=== PATIENT | female | born 1955 | race Caucasian/White ===

== ENCOUNTER → 2019-11-20 | Outpatient (CLI) | payer MEDICARE, OTHER ==
[2019-11-20 11:45] LABS: HCT 46.6 % (34.0-46.0); HGB 14.8 gm/dL (11.4-16.0); MCHC 31.7 g/dL (31.0-37.0); MCV 91.4 fL (80.0-100.0); Mean Platelet Volume 7.6; Platelet Count 259 k/uL (150-450); RDW 13.1 % (11.5-15.5); WBC 7.1 k/uL (3.8-10.6)
[2019-11-20 11:49] LABS: Appearance,Urine Clear (Clear); Bilirubin,Urine Negative (Negative); Blood,Urine Negative (Negative); Color,Urine Yellow; Glucose,Urine (UA) Negative (Negative); Hyaline Casts,Urine 8 /lpf (0-2); Ketones,Urine Trace (Negative); Leukocyte Esterase,Urine Large (Negative); Mucus,Urine Few /hpf; Nitrite,Urine Negative (Negative); PH, Urine 5.5 (5.0-8.0); Protein,Urine Trace (Negative); RBC,Urine 1 /hpf (0-5); Specific Gravity,Urine 1.025 (1.001-1.035); Squamous Epithelial Cell,Urine 4 /hpf (0-4); Urobilinogen,Urine <2.0 mg/dL (<2.0); WBC,Urine 6 /hpf (0-5)
[2019-11-20 11:56] LABS: Albumin 4.1 g/dL (3.5-5.0); Calcium 9.7 mg/dL (8.4-10.2); Potassium 4.7 mmol/L (3.5-5.1); Total Bilirubin 0.6 mg/dL (0.2-1.3); Total Protein 6.8 g/dL (6.3-8.2)
[2019-11-20 12:22] LABS: Partial Thromboplastin Time 24.1 sec (22.0-30.0)
== END | disposition home or self-care (01) ==
LOC: LABPAT 09:50
PROVIDERS: ATTEND Orthopaedic Surgery
DX: Z01.818 Encounter for other preprocedural examination (principal); Z01.812 Encounter for preprocedural laboratory examination
CPT/HCPCS: 36415; 80053; 81001; 85027; 85610; 85730; 87070

== ENCOUNTER 2019-12-03 10:57 | Day surgery (SDC) | payer BC, MEDICARE ==
[2019-11-27 14:19] VITALS: BMI 32.9
[~2019-12-03 10:57] MED LIST: ACETAMINOPHEN TAB 500 MG TAB PO ONE; DEXAMETHASONE SOD PHOSPHATE 10 MG/ML 1 ML VIAL IV ONE; GABAPENTIN 300 MG CAP PO ONE; HYDROmorphone 0.5 MG/0.5 ML SYRINGE IVP PRN; LIDOCAINE 1% (10MG/ML) FOR IV START INTRADERMA PRN; MELOXICAM 7.5 MG TAB PO ONE; MIDAZOLAM 2 MG/2 ML VIAL IV PRN; ONDANSETRON 4 MG/2 ML VIAL IVP ONE; TRANEXAMIC ACID 1,000 MG in SODIUM CHLORIDE 0.9% 100 ML IVPB ONE
[2019-12-03] MEDS ORDERED: ACETAMINOPHEN TAB 500 MG TAB ONE (11:47)
[2019-12-03] MEDS ORDERED: ONDANSETRON 4 MG/2 ML VIAL ONE (11:48)
[2019-12-03] MEDS: LACTATED RINGERS 1,000 ML IV SCH (11:56)
[2019-12-03] MEDS ORDERED: ONDANSETRON 4 MG/2 ML VIAL IVP PRN (12:22)
[2019-12-03] MEDS ORDERED: hydrOXYzine pamoate 25 MG CAP PO PRN (12:22)
[2019-12-03] MEDS ORDERED: MAGNESIUM HYDROXIDE 2,400 MG/10 ML CUP PO PRN (12:22)
[2019-12-03] MEDS ORDERED: HYDROmorphone 0.5 MG/0.5 ML SYRINGE IVP PRN ×3 (12:22)
[2019-12-03] MEDS ORDERED: diazePAM 5 MG TAB PO PRN (12:22)
[2019-12-03] MEDS ORDERED: HYDROcodone/APAP 5-325MG 1 EACH TAB PO PRN (12:22)
[2019-12-03] MEDS ORDERED: NALOXONE 0.4 MG/ML 1 ML VIAL IV PRN (12:22)
[2019-12-03] MEDS ORDERED: fentaNYL (PF) 50 MCG/ML 2 ML AMP ONE (12:48)
[2019-12-03] MEDS ORDERED: PROPOFOL 10 MG/ML 20 ML VIAL IV ONE (12:48)
[2019-12-03] MEDS ORDERED: SODIUM CHLORIDE 0.9% IRRIG 1,000 ML BTL IRRIGATION ONE (12:48)
[2019-12-03] MEDS ORDERED: MIDAZOLAM 2 MG/2 ML VIAL ONE (12:48)
[2019-12-03] MEDS ORDERED: TRANEXAMIC ACID 1,000 MG/10 ML VIAL ONE (12:48)
[2019-12-03] MEDS ORDERED: SODIUM CHLORIDE 0.9% 100 ML BAG ONE (12:48)
[2019-12-03] MEDS ORDERED: HEPARIN SODIUM,PORCINE 10,000 UNIT/ML 1 ML VIAL ONE (12:48)
[2019-12-03] MEDS ORDERED: ceFAZolin 3,000 MG in SODIUM CHLORIDE 0.9% IRRIGATIO 3,000 ML IRRIGATION ONE (12:52)
[2019-12-03] MEDS: ROPIVACAINE 246.25 MG, EPINEPHrine 0.5 MG, KETOROLAC 30 MG, cloNIDine HCL/PF 80 MCG, WA... MISCELLANE ONE ×10 (13:29→14:07)
[2019-12-03] MEDS ORDERED: LACTATED RINGERS 1,000 ML IV ONE (14:18)
--- NOTE | 2019-12-03 14:21 | P.OP ---
Date of Procedure: 12/03/19 Preoperative Diagnosis: Severe osteoarthritis right hip Postoperative Diagnosis: Severe osteoarthritis right hip Procedure(s) Performed: Right total hip arthroplasty with a direct anterior approach Implants: Ang and nephew Polarstem size 3 standard Ang & Nephew R3, 3 hole acetabular shell, 54 mm Ang & Nephew reflection 6.5 mm cancellus screw, 20 mm 2 Ang & Nephew R3, XLPE 20 acetabular liner Ang & Nephew Oxinium femoral head 36 m, +4 All components were press-fit. The articulation is Oxinium on polyethylene. Anesthesia: spinal Surgeon: Fred Oliveira Trainmaster #1: Liz Gaitan Estimated Blood Loss (ml): 300 (124 mL returned with Cell Saver) Pathology: other (Femoral head) Condition: stable Disposition: PACU Indications for Procedure: After failure of conservative treatment we discussed the surgical and nonsurgical treatment options at length. Patient wishes to proceed with a total hip arthroplasty with a direct anterior approach. Complications specific to this procedure were discussed at length, including but not limited to infection, leg length discrepancy, dislocation, and nerve injury. Covid-19 was also discussed at length with the patient, and they are aware of the current policies and procedures. The patient was given the option of delaying surgery, but they elect to proceed knowing these risks. Patient is aware of all these complications and informed consent was obtained Operative Findings: The operative findings are consistent with severe osteoarthritis of the right hip Description of Procedure: Patient was seen and evaluated in the preoperative area, consent was reviewed, and the surgical site was marked with a skin marker. Patient was then brought to the operating room and given prophylactic antibiotics intravenously. 1 g of Tranexamic acid was also given. A spinal anesthetic was administered by the anesthesia department. The patient was then placed on the Pes[place] table with the bony prominences well-padded. The hip area was then prepped and draped in usual sterile fashion. A universal timeout was then performed, which confirmed the patient's name, surgical site, ALLERGIES, and procedure being performed. Next the incision site was located at 1 cm distal and 1 cm lateral to the anterior superior iliac spine. The skin and subcutaneous tissues were sharply incised. Incision was carefully dissected down to the fascia overlying the tensor fascia sue muscle. This fascia was then incised in line with the incision. Next, using blunt finger dissection, the tensor fascia sue muscle was dissected off its investing fascia. The muscle was then carefully retracted laterally with a cobra retractor over the lateral neck of the femur. Next, the circumflex vessels were identified and cauterized using the AquaMantis device. The anterior hip capsule was then exposed. The capsule was then opened and an inverted T fashion. Cobra retractors were then placed intracapsularly. The proximal femur was then visualized. The femoral neck was then osteotomized appropriate level above the lesser trochanter. Small amount of traction was placed with the Pes[place]um table. A small wedge of bone was then removed from the remaining femoral head. Next, using a corkscrew femoral head was easily removed from the acetabulum. On gross visual inspection, the femoral head had complete loss of articular cartilage in multiple periarticular osteophytes. Attention was then turned to the acetabulum. the acetabulum was exposed and any remaining labrum was excised. Sequential reaming of the acetabulum was performed using fluoroscopic guidance. When the appropriate size was reached, a trial was then placed. The position and fit of the trial was checked with fluoroscopy. The trial was then removed. Then, using fluoroscopic guidance, the final implant was impacted at 20 of anteversion and 40 of abduction, and fully seated in the acetabulum. 2 screws were then placed in the acetabulum. Again fluoroscopy was used to check position of the screws. Next, the liner was then impacted, with a 20 elevated liner located in the anterior superior quadrant. Component locking was confirmed. Attention was then directed to the femur. With the aid of the Pesotum table, the femur was externally rotated to approximately 130, extended, and abducted under the opposite leg. A side hook was then placed under the proximal femur, and the side hook elevator was used to elevate the proximal femur. Retractors were then placed. A capsular release was performed, as well as a release of the conjoined tendon, which afforded excellent visualization of the proximal femur. Next, a box osteotome was used to lateralize the proximal femur. A hose handler was then used to locate the femoral canal. Sequential broaching was then performed with appropriate size which afforded excellent fixation in the proximal femur. A trial was then placed with appropriate head and neck, and the hip was gently reduced with the aid of the Pesotum table. Fluoroscopy was then used to check position of the components, as well as to ensure equal leg lengths. The hip was then gently dislocated and the trials were then removed. Final implants were then impacted and the hip was again reduced. Final fluoroscopic x-rays confirmed that the components were in anatomic position, as well as equal leg lengths. The hip was also taken through range of motion, and found to be stable. The hip was then copiously irrigated with antibiotic solution with pulsatile lavage. The hip was then irrigated with Irrisept solution. The soft tissues were then injected with a ropivacaine solution, which consisted of 246.25 mg of ropivacaine, 0.5 mg of epinephrine, 30 mg of Toradol, 80 g of clonidine, and 48.45 mL of sterile water, for a total of 100 mL of fluid injected. A second dose of 1 g of Tranexamic acid was also given. the fascia was then closed with 2-0 strata fix suture. The subcutaneous tissue was closed with 3-0 Vicryl. The subcuticular tissue was closed with 3-0 strata fix suture. The skin was then closed with Dermabond glue and a sterile silver dressing. The patient was then transferred to the recovery room in stable condition. The pediatric physical therapy assistant AYE Haines was required due to the complexity of surgery, and the need for skilled surgical physician assistant for positioning, draping, exposure, retraction, and closure of the wound.
--- NOTE | 2019-12-03 14:30 | FL ---
EXAMINATION TYPE: FL guidance operating room, XR Hip Limited RT DATE OF EXAM: 12/03/2019 CLINICAL HISTORY: Right hip pain and osteoarthritis. TECHNIQUE: Fluoroscopy. Intraoperative limited views right hip. COMPARISON: None. FINDINGS: Fluoroscopic guidance was provided during right hip replacement procedure performed by Dr. Oliveira. A total of 63 seconds of fluoroscopic time was utilized during the procedure and 3 spot f luoroscopic intraoperative images are acquired. Intraoperative images obtained show metallic artifact from total right hip arthroplasty satisfactory in position on frontal view with surrounding lucency or gas from recent surgical replacement noted. IMPRESSION: As Above.
--- NOTE | 2019-12-03 15:08 | XR ---
EXAMINATION TYPE: XR Hip Limited RT DATE OF EXAM: 12/03/2019 CLINICAL HISTORY: Right hip pain and osteoarthritis. TECHNIQUE: Single AP portable view of right hip is obtained immediately postoperatively. COMPARISON: None. FINDINGS: Metallic hardware from right hip arthroplasty is seen and appears satisfactory in alignment and position. There is evidence of recent surgery with subcutaneous gas noted surrounding prosthesi s. IMPRESSION: Metallic hardware from right hip arthroplasty is satisfactory in position.
[2019-12-03] MEDS: HYDROcodone/APAP 5-325MG 1 EACH TAB PO PRN ×2 (15:47→21:42)
[2019-12-03] MEDS: SODIUM CHLORIDE 0.9% 1,000 ML IV SCH (15:56)
[2019-12-03] MEDS: ASPIRIN 325 MG TAB PO SCH (20:37)
[2019-12-03] MEDS ORDERED: SENNOSIDES-DOCUSATE SODIUM 1 EACH TAB PO SCH (21:00)
[2019-12-03] MEDS ORDERED: ALBUTEROL NEBULIZED 2.5 MG/3 ML INHALATION PRN (21:00)
[2019-12-03] MEDS ORDERED: LORATADINE-PSEUDOEPH 5-120 MG 1 EACH TAB.ER.12H PO PRN (21:00)
[2019-12-03] MEDS: GABAPENTIN 300 MG CAP PO SCH (21:38)
[2019-12-03] MEDS ORDERED: ACETAMINOPHEN TAB 325 MG TAB PO PRN (22:00)
[2019-12-03] MEDS ORDERED: FLUTICASONE 50MCG/SPRAY NASAL 16GM EA NOSTRIL PRN (22:00)
[2019-12-03] MEDS ORDERED: LEFLUNOMIDE 20 MG TAB PO SCH (22:00)
[2019-12-04] MEDS: SODIUM CHLORIDE 0.9% 1,000 ML IV SCH ×2 (03:59→08:05)
[2019-12-04] MEDS: LACTATED RINGERS 1,000 ML IV SCH (04:47)
[2019-12-04 07:28] LABS: Basophils % (A) 0 %; Eosinophils % (A) 0 %; HCT 36.1 % (34.0-46.0); Lymphocytes # (A) 0.9 k/uL (1.0-4.8); Lymphocytes % (A) 10 %; MCH 29.4 pg (25.0-35.0); MCHC 32.4 g/dL (31.0-37.0); MCV 90.7 fL (80.0-100.0); Mean Platelet Volume 7.7; Monocytes # (A) 0.7 k/uL (0-1.0); Monocytes % (A) 7 %; Neutrophils % (A) 82 %; Platelet Count 210 k/uL (150-450); RBC 3.97 m/uL (3.80-5.40); RDW 13.2 % (11.5-15.5); WBC 9.8 k/uL (3.8-10.6)
[2019-12-04 07:39] LABS: HGB 11.7 gm/dL (11.4-16.0)
[2019-12-04] MEDS: GABAPENTIN 300 MG CAP PO SCH (08:04)
[2019-12-04] MEDS: ASPIRIN 325 MG TAB PO SCH (08:04)
[2019-12-04 08:13] VITALS: BP 136/71; PULSE 83; RESP 18; TEMP 98.1
[2019-12-04] MEDS ORDERED: Acetaminophen-Codeine 300-30mg TAB PO PRN ×2 (08:57)
[2019-12-04] MEDS ORDERED: SERTRALINE 100 MG TAB PO SCH (09:00)
[2019-12-04] MEDS ORDERED: MELOXICAM 7.5 MG TAB PO SCH (09:00)
--- NOTE | 2019-12-04 09:01 | P.DS ---
Providers Expected date of discharge: 12/04/19 Attending physician: Fred Oliveira Consults: 12/03/19 12:22 Consult Physician Routine Consulting Provider: Ed Philippe Consult Reason/Comments: medical management Do you want consulting provider notified?: Yes Primary care physician: Wendy Dawson - Discharge Diagnosis(es) (1) S/P total hip arthroplasty Current Visit: Yes Status: Acute (2) Osteoarthritis of right hip Current Visit: Yes Status: Acute Hospital Course: This is a 64-year-old female with known history of degenerative arthritis of the right hip. The patient presents for evaluation. After discussion and consideration patient elects to proceed with total hip arthroplasty. The patient is seen preoperatively by Dr. Oliveira and medically cleared for surgery by their primary care physician. Patient is admitted to [facility] on 12/03/2019 for total hip arthroplasty. The procedures performed without complication or sequelae. The patient is doing well postoperatively. Labs and vital signs are stable on day of discharge. On day of discharge patient's hip incision is healing well. There is minimal erythema. There is no drainage noted at this time. There is minimal soft tissue swelling to the hip and thigh. Patient has full foot and ankle motion without difficulty or pain. Calf is soft and nontender to palpation. Neurovascular status to the right lower extremity is intact. Patient is discharged home in good condition. Opioid start talking form is reviewed and signed at patient bedside. Please see med rec for accurate list of home medications. Plan - Discharge Summary Discharge Rx Participant: No New Discharge Prescriptions: New Aspirin 325 mg PO BID #60 tab Sennosides [Senokot] 2 tab PO DAILY PRN #60 tablet PRN Reason: Constipation Acetaminophen-Codeine 300-30mg [Tylenol #3] 1 - 2 tab PO Q6H PRN #56 tablet PRN Reason: Pain No Action Loratadine-Pseudoeph 5-120 mg [Claritin-D 12 Hour] 1 tab PO Q12HR PRN PRN Reason: allergies Fluticasone Nasal [place] [Flonase Nasal [place]] 1 spray EA NOSTRIL DAILY PRN PRN Reason: allergies Albuterol Inhaler [Ventolin Hfa Inhaler] 1 puff INHALATION DAILY PRN PRN Reason: Dyspnea Meloxicam [Mobic] 7.5 mg PO BID Leflunomide [Arava] 20 mg PO Q48H Sertraline HCl [Zoloft] 100 mg PO DAILY Gabapentin [Neurontin] 600 mg PO TID Acetaminophen [Tylenol] 325 mg PO DAILY PRN PRN Reason: Pain Esomeprazole Magnesium [NexIUM] 20 mg PO DAILY PRN PRN Reason: acid reflux Discharge Medication List Acetaminophen [Tylenol] 325 mg PO DAILY PRN 11/27/19 [History] Albuterol Inhaler [Ventolin Hfa Inhaler] 1 puff INHALATION DAILY PRN 11/27/19 [History] Esomeprazole Magnesium [NexIUM] 20 mg PO DAILY PRN 11/27/19 [History] Fluticasone Nasal [place] [Flonase Nasal [place]] 1 spray EA NOSTRIL DAILY PRN 11/27/19 [History] Gabapentin [Neurontin] 600 mg PO TID 11/27/19 [History] Leflunomide [Arava] 20 mg PO Q48H 11/27/19 [History] Loratadine-Pseudoeph 5-120 mg [Claritin-D 12 Hour] 1 tab PO Q12HR PRN 11/27/19 [History] Meloxicam [Mobic] 7.5 mg PO BID 11/27/19 [History] Sertraline HCl [Zoloft] 100 mg PO DAILY 11/27/19 [History] Acetaminophen-Codeine 300-30mg [Tylenol #3] 1 - 2 tab PO Q6H PRN #56 tablet 12/04/19 [Rx] Aspirin 325 mg PO BID #60 tab 12/04/19 [Rx] Sennosides [Senokot] 2 tab PO DAILY PRN #60 tablet 12/04/19 [Rx] Follow up Appointment(s)/Referral(s): Fred Oliveira DO [Doctor of Osteopathic Medicine] - 2 Weeks Activity/Diet/Wound Care/Special Instructions: Weightbearing as tolerated with walker. Leave dressing intact. Dressing may be removed by home care nurse or by patient in 10 days. May shower with dressing on. Recommend use of compression stockings daily until follow up to help prevent swelling and blood clots. May remove at night before sleeping. Please follow-up with [facility] in 2 weeks and call with any questions or concerns, . Discharge Disposition: HOME WITH HOME HEALTH SERVICES
--- NOTE | 2019-12-04 12:12 | P.CONS ---
History of Present Illness - History of Present Illness This is a pleasant 64 years old female with past medical history of osteoarth ritis, rheumatoid arthritis, GERD, fibromyalgia. She was admitted for severe osteoarthritis of right hip, status post elective right total hip arthroplasty. Today postop day #1 Medical consult was requested for medical management. Patient denies any specific symptoms, she was pleasant and smiling. She denies chest pain or dyspnea, no abdominal pain, no nausea, vomiting, showed bowel movement. She denies fever. vitals reviewed Review of Systems CONSTITUTIONAL: No fever, no malaise, no fatigue. HEENT: No recent visual problems or hearing problems. Denied any sore throat. CARDIOVASCULAR: No orthopnea, PND, no palpitations, no syncope. PULMONARY: No shortness of breath, no cough, no hemoptysis. GASTROINTESTINAL: No diarrhea, no nausea, no vomiting, no abdominal pain. Normoactive bowel sounds. NEUROLOGICAL: No headaches, no weakness, no numbness. HEMATOLOGICAL: Denies any bleeding or petechiae. GENITOURINARY: Denies any burning micturition, frequency, or urgency. MUSCULOSKELETAL/RHEUMATOLOGICAL: Denies any joint pain, swelling, or any muscle pain. Past Medical History Past Medical History: Fibromyalgia, GERD/Reflux, Osteoarthritis (OA), Rheumatoid Arthritis (RA), Sleep Apnea/CPAP/BIPAP Additional Past Medical History / Comment(s): seasonal allergies, has cpap,lymphdema rt arm History of Any Multi-Drug Resistant Organisms: None Reported Past Surgical History: Cholecystectomy, Hysterectomy, Joint Replacement, Orthopedic Surgery, Tonsillectomy Additional Past Surgical History / Comment(s): 2 large lipomas removed rt axillae, 3 total knee lt x1,rt knee x2 replacement,lipoma removed from back,ermias carpal tunnel,tendon release middle finger and thumbs ermias., ermias thumb joints Past Anesthesia/Blood Transfusion Reactions: No Reported Reaction Past Psychological History: Depression Smoking Status: Former smoker Past Alcohol Use History: Rare Additional Past Alcohol Use History / Comment(s): smoked 10 years off and on 1 ppd, quit age 26 Past Drug Use History: None Reported - Past Family History Sister(s) Family Medical History: Cancer Additional Family Medical History / Comment(s): skin cancer Brother(s) Family Medical History: Cancer Additional Family Medical History / Comment(s): skin cancer Medications and Allergies Home Medications Medication Instructions Recorded Confirmed Type Acetaminophen [Tylenol] 325 mg PO DAILY PRN 11/27/19 12/03/19 History Albuterol Inhaler [Ventolin Hfa 1 puff INHALATION DAILY PRN 11/27/19 12/03/19 History Inhaler] Esomeprazole Magnesium [NexIUM] 20 mg PO DAILY PRN 11/27/19 12/03/19 History Fluticasone Nasal [place] [Flonase 1 spray EA NOSTRIL DAILY PRN 11/27/19 12/03/19 History Nasal [place]] Gabapentin [Neurontin] 600 mg PO TID 11/27/19 12/03/19 History Leflunomide [Arava] 20 mg PO Q48H 11/27/19 12/03/19 History Loratadine-Pseudoeph 5-120 mg 1 tab PO Q12HR PRN 11/27/19 12/03/19 History [Claritin-D 12 Hour] Meloxicam [Mobic] 7.5 mg PO BID 11/27/19 12/03/19 History Sertraline HCl [Zoloft] 100 mg PO DAILY 11/27/19 12/03/19 History Acetaminophen-Codeine 300-30mg 1 - 2 tab PO Q6H PRN #56 tablet 12/04/19 Rx [Tylenol #3] Aspirin 325 mg PO BID #60 tab 12/04/19 Rx Sennosides [Senokot] 2 tab PO DAILY PRN #60 tablet 12/04/19 Rx Allergies Allergy/AdvReac Type Severity Reaction Status Date / Time amoxicillin [From Augmentin] Allergy Nausea Verified 12/03/19 11:38 aripiprazole [From Abilify] Allergy Unknown Verified 12/03/19 11:38 clavulanic acid Allergy Nausea Verified 12/03/19 11:38 [From Augmentin] methotrexate Allergy ringing in Verified 12/03/19 11:38 ears Sulfa (Sulfonamide Allergy Rash/Hives, Verified 12/03/19 11:38 Antibiotics) itchy Physical Exam Vitals: Vital Signs Temp Pulse Pulse Resp BP BP Pulse Ox 12/04/19 08:00 83 18 12/04/19 07:00 98.1 F 83 18 136/71 96 12/04/19 03:02 14 12/04/19 01:23 97.5 F L 71 20 113/67 92 L 12/03/19 23:29 16 12/03/19 19:30 97.6 F 92 20 145/54 93 L 12/03/19 17:08 77 120/74 12/03/19 16:54 83 154/69 12/03/19 16:38 75 122/77 12/03/19 16:23 77 135/83 12/03/19 16:08 83 135/72 12/03/19 16:00 78 16 12/03/19 15:53 78 123/81 12/03/19 15:39 80 141/70 12/03/19 15:38 97.6 F 76 14 136/78 94 L 12/03/19 15:17 78 16 152/72 97 12/03/19 15:00 80 16 157/75 98 12/03/19 14:47 87 16 165/78 92 L 12/03/19 14:35 97.7 F 84 16 144/80 95 Intake and Output 12/03/19 12/04/19 12/04/19 22:59 06:59 14:59 Intake Total 710 560 Balance 710 560 Intake: IV 150 Intake, IV Titration 560 560 Amount Lactated Ringers 1,000 ml 560 @ 20 mls/hr IV .Q24H [facility] Rx#:[id number] Sodium Chloride 0.9% 1, 560 000 ml @ 70 mls/hr IV . [id number] [facility]ORTES Rx#:[id number] Other: Voiding Method Toilet Toilet # Voids 2 1 Weight 107.5 kg GENERAL: The patient is alert and oriented x3, not in any acute distress. Well developed, well nourished. HEENT: Pupils are round and equally reacting to light. EOMI. No scleral icterus. No conjunctival pallor. Normocephalic, atraumatic. No pharyngeal erythema. No thyromegaly. CARDIOVASCULAR: S1 and S2 present. No murmurs, rubs, or gallops. PULMONARY: Chest is clear to auscultation, no wheezing or crackles. ABDOMEN: Soft, nontender, nondistended, normoactive bowel sounds. No palpable organomegaly. MUSCULOSKELETAL: No joint swelling or deformity. EXTREMITIES: No cyanosis, clubbing, or pedal edema. NEUROLOGICAL: Gross neurological examination did not reveal any focal deficits. SKIN: No rashes. No petechiae Results CBC & Chem 7: 12/04/19 06:31 Labs: Abnormal Lab Results - Last 24 Hours (Table) 12/04/19 Range/Units 06:31 Neutrophils # 8.0 H (1.3-7.7) k/uL Lymphocytes # 0.9 L (1.0-4.8) k/uL Assessment and Plan Assessment: Severe osteoarthritis of right hip status post right total hip arthroplasty Rheumatoid arthritis GERD Fibroma lodging Osteoarthritis Plan: This is a pleasant 64 years old female who presents with total right hip arthroplasty. Labs and medication were reviewed.. Continue same treatment. Continue with sy mptomatic treatment. Resume home medication. Monitor lytes and vitals. DVT and GI prophylaxis. Further recommendations of the clinical course of the patient DVT prophylaxis and pain management as per surgery primary team. We Recommend patient follow up with her PCP within one week after discharge and patient was instructed with the same Thank you for consulting us
== END 2019-12-04 13:02 | disposition home health service (06) ==
LOC: OR 10:57 → 4SSUR 14:53 → OR 12-04 13:02
PROVIDERS: ATTEND Orthopaedic Surgery
DX: M16.11 Unilateral primary osteoarthritis, right hip (principal); M06.9 Rheumatoid arthritis, unspecified; G47.33 Obstructive sleep apnea (adult) (pediatric); E66.9 Obesity, unspecified; I89.0 Lymphedema, not elsewhere classified; M79.7 Fibromyalgia; K21.9 Gastro-esophageal reflux disease without esophagitis; K22.8 Other specified diseases of esophagus; F32.9 Major depressive disorder, single episode, unspecified; J30.2 Other seasonal allergic rhinitis; Z88.2 Allergy status to sulfonamides; Z88.0 Allergy status to penicillin; Z88.8 Allergy status to other drugs, medicaments and biological substances; Z79.1 Long term (current) use of non-steroidal anti-inflammatories (NSAID); Z79.891 Long term (current) use of opiate analgesic; Z79.899 Other long term (current) drug therapy; Z96.653 Presence of artificial knee joint, bilateral; Z99.89 Dependence on other enabling machines and devices; Z90.49 Acquired absence of other specified parts of digestive tract; Z90.710 Acquired absence of both cervix and uterus; Z90.89 Acquired absence of other organs; Z87.891 Personal history of nicotine dependence; Z80.8 Family history of malignant neoplasm of other organs or systems; Z97.3 Presence of spectacles and contact lenses; Z83.3 Family history of diabetes mellitus; Z68.33 Body mass index [BMI] 33.0-33.9, adult
CPT/HCPCS: 27130; 97161; 97165; 86891; 85025; 88300; 73501 ×2; C1776; J2250; J0171; J1644; J1100; J0690 ×3; J2405; J3010; J1885; J2795; J2704; J0735; 86850; 86900; 86901

== ENCOUNTER 2021-11-16 19:36 | Inpatient (IN) | payer MEDICARE, OTHER ==
[2021-11-16] MEDS ORDERED: HYDROmorphone 1 MG/ML 1 ML SYRINGE IVP STA (20:18)
[2021-11-16] MEDS ORDERED: NALOXONE 0.4 MG/ML 1 ML VIAL IV PRN (20:19)
[2021-11-16] MEDS ORDERED: ONDANSETRON 4 MG/2 ML VIAL IVP PRN (20:19)
--- NOTE | 2021-11-16 20:19 | ED ---
General Adult HPI - General Chief complaint: Fall Stated complaint: Fall, hip injury Time Seen by Provider: 11/16/21 19:50 Source: patient Mode of arrival: EMS Limitations: physical limitation - History of Present Illness Initial comments: 66-year-old female with past medical history of right hip replacement in 2019 presents emergency room from [facility] in [facility]. Earlier today the patient was standing in her kitchen when she went to turn left and subsequently felt severe pain in her right hip causing her fall to the floor. At outside hospital patient went sedation and reduction 2 by the ER physician and on-call orthopedist. They were unable to reduce the patient's right hip and therefore contacted Dr. Muñiz who did originally procedure. Patient was agreeable to transfer to our facility for possible open reduction. She arrives and continues to have pain. Last received morphine 2 mg around 5:30. No numbness or tingling in the foot. No other injuries. No other alleviating, precipitating or modifying factors - Related Data Home Medications Medication Instructions Recorded Confirmed Albuterol Inhaler [Ventolin Hfa 2 puff INHALATION RT-Q6H PRN 11/27/19 11/16/21 Inhaler] Fluticasone Nasal [place] [Flonase 1 spray EA NOSTRIL DAILY PRN 11/27/19 11/16/21 Nasal [place]] Leflunomide [Arava] 20 mg PO Q48H 11/27/19 11/16/21 Sertraline HCl [Zoloft] 100 mg PO DAILY 11/27/19 11/16/21 Cholecalciferol [Vitamin D3 (25 25 mcg PO TID 11/16/21 11/16/21 Mcg = 1000 Iu)] Esomeprazole Magnesium [NexIUM 20 mg PO DAILY 11/16/21 11/16/21 24Hr] Pregabalin [Lyrica] 150 mg PO TID 11/16/21 11/16/21 Previous Rx's Medication Instructions Recorded Aspirin 325 mg PO BID #60 tab 11/17/21 HYDROcodone/APAP 5-325MG [[place] 5] 1 each PO Q6HR PRN #28 tab 11/17/21 Ondansetron [Zofran] 4 mg PO Q6HR PRN #30 tab 11/17/21 Sennosides-Docusate Sodium 1 tab PO BID PRN #60 tablet 11/17/21 [Senokot-S] Allergies Allergy/AdvReac Type Severity Reaction Status Date / Time amoxicillin [From Augmentin] Allergy Nausea Verified 11/17/21 17:27 aripiprazole [From Abilify] Allergy Unknown Verified 11/17/21 17:27 clavulanic acid Allergy Nausea Verified 11/17/21 17:27 [From Augmentin] levofloxacin [From Levaquin] Allergy Unknown Verified 11/17/21 17:27 methotrexate Allergy ringing in Verified 11/17/21 17:27 ears Sulfa (Sulfonamide Allergy Rash/Hives, Verified 11/17/21 17:27 Antibiotics) itchy Review of Systems ROS Statement: Those systems with pertinent positive or pertinent negative responses have been documented in the HPI. ROS Other: All systems not noted in ROS Statement are negative. Past Medical History Past Medical History: Fibromyalgia, GERD/Reflux, Osteoarthritis (OA), Rheumatoid Arthritis (RA), Sleep Apnea/CPAP/BIPAP Additional Past Medical History / Comment(s): seasonal allergies, has cpap,lymphdema rt arm History of Any Multi-Drug Resistant Organisms: None Reported Past Surgical History: Cholecystectomy, Hysterectomy, Joint Replacement, Orthopedic Surgery, Tonsillectomy Additional Past Surgical History / Comment(s): 2 large lipomas removed rt a xillae, 3 total knee lt x1,rt knee x2 replacement,lipoma removed from back,ermias carpal tunnel,tendon release middle finger and thumbs ermias., ermias thumb joints Past Anesthesia/Blood Transfusion Reactions: No Reported Reaction Past Psychological History: Depression Smoking Status: Former smoker Past Alcohol Use History: Rare Past Drug Use History: None Reported - Past Family History Sister(s) Family Medical History: Cancer Additional Family Medical History / Comment(s): skin cancer Brother(s) Family Medical History: Cancer Additional Family Medical History / Comment(s): skin cancer Father Family Medical History: Myocardial Infarction ([place]) Additional Family Medical History / Comment(s): Father of a [place] at the age of 65yrs. Mother Family Medical History: No Reported History Additional Family Medical History / Comment(s): Mother was healthy and lived to be 96yrs old. General Exam Limitations: physical limitation General appearance: alert, in no apparent distress Head exam: Present: atraumatic, normocephalic, normal inspection Eye exam: Present: normal appearance, PERRL, EOMI. Absent: scleral icterus, conjunctival injection, periorbital swelling ENT exam: Present: normal exam, mucous membranes moist Neck exam: Present: normal inspection. Absent: tenderness, meningismus, lymphadenopathy Respiratory exam: Present: normal lung sounds bilaterally. Absent: respiratory distress, wheezes, rales, rhonchi, stridor Cardiovascular Exam: Present: regular rate, normal rhythm, normal heart sounds. Absent: systolic murmur, diastolic murmur, rubs, gallop, clicks GI/Abdominal exam: Present: soft, normal bowel sounds. Absent: distended, tenderness, guarding, rebound, rigid Extremities exam: Present: tenderness (right hip. right leg is shortened and rotated). Absent: pedal edema, joint swelling, calf tenderness Back exam: Present: normal inspection Neurological exam: Present: alert, oriented X3, CN II-XII intact Psychiatric exam: Present: normal affect, normal mood Skin exam: Present: warm, dry, intact, normal color. Absent: rash Course Vital Signs 11/16/21 11/16/21 11/16/21 19:41 19:42 19:50 Temperature 98.7 F Pulse Rate 79 84 Pulse Rate [ Bilateral Supine Dorsalis Pedis] Respiratory 16 64 H Rate Blood Pressure 171/94 171/94 Blood Pressure [Left Arm] O2 Sat by Pulse 98 87 L 99 Oximetry 11/16/21 11/16/21 11/16/21 19:57 20:00 20:10 Temperature Pulse Rate 84 92 Pulse Rate [ 77 Bilateral Supine Dorsalis Pedis] Respiratory 15 17 Rate Blood Pressure 171/94 176/136 Blood Pressure [Left Arm] O2 Sat by Pulse 93 L Oximetry 11/16/21 11/16/21 11/16/21 20:20 20:30 20:33 Temperature Pulse Rate 91 96 82 Pulse Rate [ Bilateral Supine Dorsalis Pedis] Respiratory 14 23 16 Rate Blood Pressure 176/136 176/136 176/136 Blood Pressure [Left Arm] O2 Sat by Pulse 94 L 92 L 95 Oximetry 11/16/21 11/16/21 11/16/21 20:40 20:50 21:00 Temperature Pulse Rate 87 90 89 Pulse Rate [ Bilateral Supine Dorsalis Pedis] Respiratory 15 15 14 Rate Blood Pressure 176/136 176/136 176/136 Blood Pressure [Left Arm] O2 Sat by Pulse 87 L 87 L 94 L Oximetry 11/16/21 11/16/21 11/16/21 21:10 21:20 21:30 Temperature Pulse Rate 90 93 95 Pulse Rate [ Bilateral Supine Dorsalis Pedis] Respiratory 16 16 15 Rate Blood Pressure 176/79 176/79 176/79 Blood Pressure [Left Arm] O2 Sat by Pulse 96 97 96 Oximetry 11/16/21 11/16/21 11/16/21 21:40 21:50 22:00 Temperature Pulse Rate 97 96 96 Pulse Rate [ Bilateral Supine Dorsalis Pedis] Respiratory 12 16 16 Rate Blood Pressure 176/79 176/79 176/79 Blood Pressure [Left Arm] O2 Sat by Pulse 95 94 L 94 L Oximetry 11/16/21 11/16/21 11/16/21 22:10 22:20 22:30 Temperature Pulse Rate 99 101 H 100 Pulse Rate [ Bilateral Supine Dorsalis Pedis] Respiratory 16 12 12 Rate Blood Pressure 153/80 153/80 153/80 Blood Pressure [Left Arm] O2 Sat by Pulse 93 L 92 L 92 L Oximetry 11/16/21 11/16/21 11/16/21 22:40 22:50 23:10 Temperature Pulse Rate 98 99 88 Pulse Rate [ Bilateral Supine Dorsalis Pedis] Respiratory 13 18 15 Rate Blood Pressure 153/80 153/80 134/62 Blood Pressure [Left Arm] O2 Sat by Pulse 92 L 93 L 94 L Oximetry 11/16/21 11/16/21 11/16/21 23:20 23:30 23:40 Temperature Pulse Rate 89 92 92 Pulse Rate [ Bilateral Supine Dorsalis Pedis] Respiratory 14 15 16 Rate Blood Pressure 134/62 134/62 134/62 Blood Pressure [Left Arm] O2 Sat by Pulse 94 L 93 L 93 L Oximetry 11/16/21 11/17/21 11/17/21 23:50 02:21 06:41 Temperature Pulse Rate 92 89 77 Pulse Rate [ Bilateral Supine Dorsalis Pedis] Respiratory 10 L 16 18 Rate Blood Pressure 134/62 133/66 129/62 Blood Pressure [Left Arm] O2 Sat by Pulse 94 L 93 L 94 L Oximetry 11/17/21 11/17/21 09:00 14:37 Temperature 97.8 F Pulse Rate 87 Pulse Rate [ 76 Bilateral Supine Dorsalis Pedis] Respiratory 16 18 Rate Blood Pressure 148/64 Blood Pressure 132/77 [Left Arm] O2 Sat by Pulse 99 93 L Oximetry Medical Decision Making - Medical Decision Making Upon arrival patient was placed into room 4. Thorough history and physical exam was performed. I did review the patient's transfer record. 2 failed attempts at hip dislocation reduction and therefore the patient will be admitted for orthopedic evaluation. Called and spoke with Dr. Oliveira who agreed with the patient. Patient awaiting a bed on the floor in stable condition - Lab Data Result diagrams: 11/18/21 07:45 11/19/21 07:05 Lab Results 11/17/21 11/17/21 Range/Units 05:31 05:31 WBC 9.53 (4.50-10.00) X 10*3/uL RBC 4.42 (4.10-5.20) X 10*6/uL Hgb 12.4 (12.0-15.0) g/dL Hct 39.9 (37.2-46.3) % MCV 90.3 (80.0-97.0) fL MCH 28.1 (27.0-32.0) pg MCHC 31.1 L (32.0-37.0) g/dL RDW 14.5 (11.5-14.5) % Plt Count 193 (140-440) X 10*3/uL MPV 11.5 (9.5-12.2) fL Immature Gran % (Auto) 0.3 % Absolute Nucleated RBC 0 (0.00-0.00) X 10*3/uL Neutrophils % 74.1 % Lymphocytes % 14.7 % Monocytes % 8.9 % Eosinophils % 1.4 % Basophils % 0.6 % Immature Gran # 0.03 (0.00-0.04) X 10*3/uL Neutrophils # 7.06 (1.80-7.70) X 10*3/uL Lymphocytes # 1.40 (0.90-5.00) X 10*3/uL Monocytes # 0.85 (0.20-1.00) X 10*3/uL Eosinophils # 0.13 (0.04-0.35) X 10*3/uL Basophils # 0.06 (0.00-0.10) X 10*3/uL NRBC/100 WBC Diff 0 (0.0-0.0) /100 WBCS Sodium 143 (135-145) mmol/L Potassium 4.3 (3.5-5.5) mmol/L Chloride 107 (96-109) mmol/L Carbon Dioxide 27.8 H (20.0-27.5) mmol/L Anion Gap 8.20 L (10.00-18.00) mmol/L BUN 16.8 (9.0-27.0) mg/dL Creatinine 0.7 (0.6-1.5) mg/dL Est GFR (CKD-EPI)AfAm 103.2 (60.0-200.0) Est GFR (CKD-EPI)NonAf 89.0 (60.0-200.0) BUN/Creatinine Ratio 24.00 H (12.00-20.00) Ratio Glucose 144 H (70-110) mg/dL Calcium 8.8 (8.7-10.3) mg/dL Disposition Clinical Impression: Hip dislocation, right Disposition: ADMITTED IP TO THIS [facility] Condition: Stable Is patient prescribed a controlled substance at d/c from ED?: No Time of Disposition: 20:18 Decision to Admit Reason: Admit from EC Decision Date: 11/16/21 Decision Time: 20:19
[2021-11-16] MEDS ORDERED: MORPHINE SULFATE 2 MG/ML SYRINGE IVP ONE (20:22)
[2021-11-17] MEDS: MORPHINE SULFATE 4 MG/ML SYRINGE IV PRN ×2 (07:55→16:10)
[2021-11-17] MEDS: CHOLECALCIFEROL 25 MCG (1000 IU) TABLET PO SCH ×3 (07:56→21:57)
[2021-11-17] MEDS: PREGABALIN 75 MG CAP PO SCH ×4 (07:56→21:57)
[2021-11-17] MEDS: PANTOPRAZOLE 40 MG TABLET PO SCH (07:56)
[2021-11-17] MEDS: SERTRALINE 100 MG TAB PO SCH (08:55)
[2021-11-17] MEDS ORDERED: FLUTICASONE 50MCG/SPRAY NASAL 16GM EA NOSTRIL PRN (09:00)
[2021-11-17 09:15] LABS: Basophils # (A) 0.06 X 10*3/uL (0.00-0.10); Basophils % (A) 0.6 %; Eosinophils # (A) 0.13 X 10*3/uL (0.04-0.35); Eosinophils % (A) 1.4 %; HCT 39.9 % (37.2-46.3); HGB 12.4 g/dL (12.0-15.0); Immature Grans, Automated 0.3 %; Lymphocytes % (A) 14.7 %; MCH 28.1 pg (27.0-32.0); MCHC 31.1 g/dL (32.0-37.0); MCV 90.3 fL (80.0-97.0); Mean Platelet Volume 11.5 fL (9.5-12.2); Monocytes # (A) 0.85 X 10*3/uL (0.20-1.00); Monocytes % (A) 8.9 %; NRBC Per 100 WBC 0 /100 WBCS (0.0-0.0); Neutrophils # (A) 7.06 X 10*3/uL (1.80-7.70); Neutrophils % (A) 74.1 %; Platelet Count 193 X 10*3/uL (140-440); RBC 4.42 X 10*6/uL (4.10-5.20); RDW 14.5 % (11.5-14.5); WBC 9.53 X 10*3/uL (4.50-10.00)
[2021-11-17 09:27] LABS: African American GFR (CKD) 103.2 (60.0-200.0); Anion Gap 8.2 mmol/L (10.00-18.00); Blood Urea Nitrogen 16.8 mg/dL (9.0-27.0); Calcium 8.8 mg/dL (8.7-10.3); Carbon Dioxide 27.8 mmol/L (20.0-27.5); Potassium 4.3 mmol/L (3.5-5.5)
--- NOTE | 2021-11-17 10:13 | P.CONS ---
History of Present Illness - Reason for Consult Preoperative clearance - History of Present Illness Patient is pleasant 72-year-old female came in after a fall and found to have displaced left distal radius fracture and disparately left intertrochanteric femoral fracture. Patient had a mechanical fall didn't have any syncope patient doesn't have any history of significant heart disease except for SVT patient does take Lasix for peripheral edema. Patient denied any chest pain at this time doesn't have any history of congestive heart failure denied any nicotine use no other significant medical problems. Patient is a functional with functionality of greater than 4 METS. REVIEW OF SYSTEMS: CONSTITUTIONAL: No fever, no malaise, no fatigue. HEENT: No recent visual problems or hearing problems. Denied any sore throat. CARDIOVASCULAR: No chest pain, orthopnea, PND, no palpitations, no syncope. PULMONARY: No shortness of breath, no cough, no hemoptysis. GASTROINTESTINAL: No diarrhea, no nausea, no vomiting, no abdominal pain. NEUROLOGICAL: No headaches, no weakness, no numbness. HEMATOLOGICAL: Denies any bleeding or petechiae. GENITOURINARY: Denies any burning micturition, frequency, or urgency. MUSCULOSKELETAL/RHEUMATOLOGICAL: Pain in the left arm and left leg ENDOCRINE: Denies any polyuria or polydipsia. The rest of the 14-point review of systems is negative. PHYSICAL EXAMINATION: GENERAL: The patient is alert and oriented x3, not in any acute distress. Well developed, well nourished. HEENT: Pupils are round and equally reacting to light. EOMI. No scleral icterus. No conjunctival pallor. Normocephalic, atraumatic. No pharyngeal erythema. No thyromegaly. CARDIOVASCULAR: S1 and S2 present. No murmurs, rubs, or gallops. PULMONARY: Chest is clear to auscultation, no wheezing or crackles. ABDOMEN: Soft, nontender, nondistended, normoactive bowel sounds. No palpable organomegaly. MUSCULOSKELETAL: Deferred to orthopedic surgery EXTREMITIES: No cyanosis, clubbing, or pedal edema. NEUROLOGICAL: Gross neurological examination did not reveal any focal deficits. SKIN: No rashes. Assessment and plan -Fall with the left distal radius fracture and left intertrochanteric fracture: Patient is low operative risk for surgery will obtain EKG patient is expected to do well with surgery. -hypertension patient blood pressure is low because of her on opiate she is receiving for pain, we'll hold off on amlodipine and Lasix at this time -History of supraventricular tachycardia no further mention intervention at this time will monitor postoperatively -Hyperlipidemia for which patient is on Lipitor to resumed DVT prophylaxis: As per primary service Past Medical History Past Medical History: Fibromyalgia, GERD/Reflux, Osteoarthritis (OA), Rheumatoid Arthritis (RA), Sleep Apnea/CPAP/BIPAP Additional Past Medical History / Comment(s): seasonal allergies, has cpap,lymphdema rt arm History of Any Multi-Drug Resistant Organisms: None Reported Past Surgical History: Cholecystectomy, Hysterectomy, Joint Replacement, Orthopedic Surgery, Tonsillectomy Additional Past Surgical History / Comment(s): 2 large lipomas removed rt axillae, 3 total knee lt x1,rt knee x2 replacement,lipoma removed from back,ermias carpal tunnel,tendon release middle finger and thumbs ermias., ermias thumb joints Past Anesthesia/Blood Transfusion Reactions: No Reported Reaction Past Psychological History: Depression Smoking Status: Former smoker Past Alcohol Use History: Rare Past Drug Use History: None Reported - Past Family History Sister(s) Family Medical History: Cancer Additional Family Medical History / Comment(s): skin cancer Brother(s) Family Medical History: Cancer Additional Family Medical History / Comment(s): skin cancer Medications and Allergies Home Medications Medication Instructions Recorded Confirmed Type Albuterol Inhaler [Ventolin Hfa 2 puff INHALATION RT-Q6H PRN 11/27/19 11/16/21 History Inhaler] Fluticasone Nasal [place] [Flonase 1 spray EA NOSTRIL DAILY PRN 11/27/19 11/16/21 History Nasal [place]] Leflunomide [Arava] 20 mg PO Q48H 11/27/19 11/16/21 History Meloxicam [Mobic] 7.5 mg PO BID 11/27/19 11/16/21 History Sertraline HCl [Zoloft] 100 mg PO DAILY 11/27/19 11/16/21 History Cholecalciferol [Vitamin D3 (25 25 mcg PO TID 11/16/21 11/16/21 History Mcg = 1000 Iu)] Esomeprazole Magnesium [NexIUM 20 mg PO DAILY 11/16/21 11/16/21 History 24Hr] Loratadine-Pseudoeph 5-120 mg 1 tab PO Q12HR PRN 11/16/21 11/16/21 History [Claritin-D 12 Hour] Pregabalin [Lyrica] 150 mg PO TID 11/16/21 11/16/21 History Allergies Allergy/AdvReac Type Severity Reaction Status Date / Time amoxicillin [From Augmentin] Allergy Nausea Verified 11/16/21 21:44 aripiprazole [From Abilify] Allergy Unknown Verified 11/16/21 21:44 clavulanic acid Allergy Nausea Verified 11/16/21 21:44 [From Augmentin] methotrexate Allergy ringing in Verified 11/16/21 21:44 ears Sulfa (Sulfonamide Allergy Rash/Hives, Verified 11/16/21 21:44 Antibiotics) itchy Physical Exam Vitals: Vital Signs Temp Pulse Pulse Resp BP Pulse Ox 11/17/21 06:41 77 18 129/62 94 L 11/17/21 02:21 89 16 133/66 93 L 11/16/21 23:50 92 10 L 134/62 94 L 11/16/21 23:40 92 16 134/62 93 L 11/16/21 23:30 92 15 134/62 93 L 11/16/21 23:20 89 14 134/62 94 L 11/16/21 23:10 88 15 134/62 94 L 11/16/21 22:50 99 18 153/80 93 L 11/16/21 22:40 98 13 153/80 92 L 11/16/21 22:30 100 12 153/80 92 L 11/16/21 22:20 101 H 12 153/80 92 L 11/16/21 22:10 99 16 153/80 93 L 11/16/21 22:00 96 16 176/79 94 L 11/16/21 21:50 96 16 176/79 94 L 11/16/21 21:40 97 12 176/79 95 11/16/21 21:30 95 15 176/79 96 11/16/21 21:20 93 16 176/79 97 11/16/21 21:10 90 16 176/79 96 11/16/21 21:00 89 14 176/136 94 L 11/16/21 20:50 90 15 176/136 87 L 11/16/21 20:40 87 15 176/136 87 L 11/16/21 20:33 82 16 176/136 95 11/16/21 20:30 96 23 176/136 92 L 11/16/21 20:20 91 14 176/136 94 L 11/16/21 20:10 92 17 176/136 11/16/21 20:00 84 15 171/94 93 L 11/16/21 19:57 77 11/16/21 19:50 84 64 H 171/94 99 11/16/21 19:42 87 L 11/16/21 19:41 98.7 F 79 16 171/94 98 Intake and Output 11/16/21 11/17/21 11/17/21 22:59 06:59 14:59 Other: Weight 110 kg Results CBC & Chem 7: 11/17/21 05:31 11/17/21 05:31 Labs: Abnormal Lab Results - Last 24 Hours (Table) 11/17/21 11/17/21 Range/Units 05:31 05:31 MCHC 31.1 L (32.0-37.0) g/dL Carbon Dioxide 27.8 H (20.0-27.5) mmol/L Anion Gap 8.20 L (10.00-18.00) mmol/L BUN/Creatinine Ratio 24.00 H (12.00-20.00) Ratio Glucose 144 H (70-110) mg/dL
--- NOTE | 2021-11-17 10:23 | P.HPOR ---
History of Present Illness H&P Date: 11/17/21 This patient is a 66-year-old female with past medical history rheumatoid arthritis, fibromyalgia who presented to [facility] emergency department yesterday after transfer from [facility] in [place], [place] for right hip dislocation. The patient is status-post direct anterior right total hip arthroplasty in [place] [address] Oliveira. Patient states she was in her kitchen yesterday and slipped on a wet floor, landing directly onto the right hip. She experienced immediate pain and inability to get up. Her called EMS, who transported the patient to [facility] emergency department. X-rays in the emergency department revealed a dislocated right total hip. There were 2 unsuccessful attempts at closed reduction by the ER physician, as well as an on-call orthopedic surgeon. The patient was transferred to [facility] emergency department for further evaluation by Dr. Oliveira. Patient is admitted under the care of Dr. Oliveira with a consulted placed to internal medicine. Patient is examined bedside this morning. She is complaining of isolated right hip pain. Patient states she has not had any issues with her right hip since surgery in 2019. She states she did not hit her head when she fell. she states besides her right hip, she otherwise feels well. She denies chest pain, shortness of breath, nausea, vomiting. She denies numbness or tingling of the right lower extremity. Vital signs stable. Past Medical History Past Medical History: Fibromyalgia, GERD/Reflux, Osteoarthritis (OA), Rheumatoid Arthritis (RA), Sleep Apnea/CPAP/BIPAP Additional Past Medical History / Comment(s): seasonal allergies, has cpap,lymphdema rt arm History of Any Multi-Drug Resistant Organisms: None Reported Past Surgical History: Cholecystectomy, Hysterectomy, Joint Replacement, Orthopedic Surgery, Tonsillectomy Additional Past Surgical History / Comment(s): 2 large lipomas removed rt axillae, 3 total knee lt x1,rt knee x2 replacement,lipoma removed from back,ermias carpal tunnel,tendon release middle finger and thumbs ermias., ermias thumb joints Past Anesthesia/Blood Transfusion Reactions: No Reported Reaction Past Psychological History: Depression Smoking Status: Former smoker Past Alcohol Use History: Rare Past Drug Use History: None Reported - Past Family History Sister(s) Family Medical History: Cancer Additional Family Medical History / Comment(s): skin cancer Brother(s) Family Medical History: Cancer Additional Family Medical History / Comment(s): skin cancer Medications and Allergies Home Medications Medication Instructions Recorded Confirmed Type Albuterol Inhaler [Ventolin Hfa 2 puff INHALATION RT-Q6H PRN 11/27/19 11/16/21 History Inhaler] Fluticasone Nasal [place] [Flonase 1 spray EA NOSTRIL DAILY PRN 11/27/19 11/16/21 History Nasal [place]] Leflunomide [Arava] 20 mg PO Q48H 11/27/19 11/16/21 History Meloxicam [Mobic] 7.5 mg PO BID 11/27/19 11/16/21 History Sertraline HCl [Zoloft] 100 mg PO DAILY 11/27/19 11/16/21 History Cholecalciferol [Vitamin D3 (25 25 mcg PO TID 11/16/21 11/16/21 History Mcg = 1000 Iu)] Esomeprazole Magnesium [NexIUM 20 mg PO DAILY 11/16/21 11/16/21 History 24Hr] Loratadine-Pseudoeph 5-120 mg 1 tab PO Q12HR PRN 11/16/21 11/16/21 History [Claritin-D 12 Hour] Pregabalin [Lyrica] 150 mg PO TID 11/16/21 11/16/21 History Allergies Allergy/AdvReac Type Severity Reaction Status Date / Time amoxicillin [From Augmentin] Allergy Nausea Verified 11/16/21 21:44 aripiprazole [From Abilify] Allergy Unknown Verified 11/16/21 21:44 clavulanic acid Allergy Nausea Verified 11/16/21 21:44 [From Augmentin] methotrexate Allergy ringing in Verified 11/16/21 21:44 ears Sulfa (Sulfonamide Allergy Rash/Hives, Verified 11/16/21 21:44 Antibiotics) itchy Physical Examination On examination, patient is sitting up in bed in no apparent distress. She is alert and oriented 3. Her head appears normocephalic and atraumatic. Her breathing appears nonlabored. On inspection of her bilateral upper extremities, there are no obvious deformities or signs of trauma. On inspection of her left lower extremity, there are no obvious deformities or signs of trauma. On inspection of the right lower extremity, there is a healed incision at the anterior knee consistent with a total knee arthroplasty. On inspection of the right hip, there are no open wounds or lacerations, skin is intact. There is diffuse pain on palpation of the right hip. No pain with palpation of the right knee, leg, ankle, foot. Range of motion of the right lower extremity is not attempted at this time. Patient has good strength and [id number] of the right ankle and foot. Motor and sensory function is intact of the right lower extremity. The dorsalis pedis pulses easily palpable, the right lower extremity is warm and well perfused with brisk capillary refill distally. Calf is non- tender. Results - Labs Labs: Abnormal Lab Results - Last 24 Hours (Table) 11/17/21 11/17/21 Range/Units 05:31 05:31 MCHC 31.1 L (32.0-37.0) g/dL Carbon Dioxide 27.8 H (20.0-27.5) mmol/L Anion Gap 8.20 L (10.00-18.00) mmol/L BUN/Creatinine Ratio 24.00 H (12.00-20.00) Ratio Glucose 144 H (70-110) mg/dL H & H 11/17/21 Range/Units 05:31 Hgb 12.4 (12.0-15.0) g/dL Hct 39.9 (37.2-46.3) % Result Diagrams: 11/17/21 05:31 11/17/21 05:31 Assessment and Plan Assessment: Right hip dislocation Status-post direct anterior right total hip arthroplasty November [address] Oliveira Plan: - Patient was also examined by Dr. Oliveira this morning. Recommend closed versus open reduction right total hip in the operating room this afternoon. Internal medicine has been consulted for medical evaluation prior to OR. - Strict non-weight bearing right lower extremity. Bed rest. - Pain management as needed. - NPO diet. Will plan for OR this afternoon.
--- NOTE | 2021-11-17 10:37 | P.CONS ---
History of Present Illness - Reason for Consult Preoperative clearance - History of Present Illness 66-year-old female with a history of lumbar arthritis came in after a mechanical fall and had right hip patient had right hip arthroplasty about any ago. Patient does have pain. Patient does have history of rheumatoid arthritis and patient denied any coronary artery disease patient is not a smoker. Patient denied any history of can start failure and her functionality is good. REVIEW OF SYSTEMS: CONSTITUTIONAL: No fever, no malaise, no fatigue. HEENT: No recent visual problems or hearing problems. Denied any sore throat. CARDIOVASCULAR: No chest pain, orthopnea, PND, no palpitations, no syncope. PULMONARY: No shortness of breath, no cough, no hemoptysis. GASTROINTESTINAL: No diarrhea, no nausea, no vomiting, no abdominal pain. NEUROLOGICAL: No headaches, no weakness, no numbness. HEMATOLOGICAL: Denies any bleeding or petechiae. GENITOURINARY: Denies any burning micturition, frequency, or urgency. MUSCULOSKELETAL/RHEUMATOLOGICAL: Pain in the right hip ENDOCRINE: Denies any polyuria or polydipsia. The rest of the 14-point review of systems is negative. PHYSICAL EXAMINATION: GENERAL: The patient is alert and oriented x3, not in any acute distress. Well developed, well nourished. HEENT: Pupils are round and equally reacting to light. EOMI. No scleral icterus. No conjunctival pallor. Normocephalic, atraumatic. No pharyngeal erythema. No thyromegaly. CARDIOVASCULAR: S1 and S2 present. No murmurs, rubs, or gallops. PULMONARY: Chest is clear to auscultation, no wheezing or crackles. ABDOMEN: Soft, nontender, nondistended, normoactive bowel sounds. No palpable organomegaly. MUSCULOSKELETAL: Pain in the right hip and deferred exam to orthopedic surgery EXTREMITIES: No cyanosis, clubbing, or pedal edema. NEUROLOGICAL: Gross neurological examination did not reveal any focal deficits. SKIN: No rashes. Assessment and plan -Preoperative clearance for orthopedic surgery for right hip dislocation: Patient is low operative risk patient is expected well postoperatively. No further testing is necessary at this time. -Rheumatoid arthritis patient's immunosuppressants for rheumatoid arthritis will be started tomorrow after surgery -Depression for which patient takes sertraline which will be resumed -Gastroesophageal reflux disease - DVT prophylaxis: As per primary service Past Medical History Past Medical History: Fibromyalgia, GERD/Reflux, Osteoarthritis (OA), Rheumatoid Arthritis (RA), Sleep Apnea/CPAP/BIPAP Additional Past Medical History / Comment(s): seasonal allergies, has cpap,ly mphdema rt arm History of Any Multi-Drug Resistant Organisms: None Reported Past Surgical History: Cholecystectomy, Hysterectomy, Joint Replacement, O rthopedic Surgery, Tonsillectomy Additional Past Surgical History / Comment(s): 2 large lipomas removed rt axillae, 3 total knee lt x1,rt knee x2 replacement,lipoma removed from back,ermias carpal tunnel,tendon release middle finger and thumbs ermias., ermias thumb joints Past Anesthesia/Blood Transfusion Reactions: No Reported Reaction Past Psychological History: Depression Smoking Status: Former smoker Past Alcohol Use History: Rare Past Drug Use History: None Reported - Past Family History Sister(s) Family Medical History: Cancer Additional Family Medical History / Comment(s): skin cancer Brother(s) Family Medical History: Cancer Additional Family Medical History / Comment(s): skin cancer Medications and Allergies Home Medications Medication Instructions Recorded Confirmed Type Albuterol Inhaler [Ventolin Hfa 2 puff INHALATION RT-Q6H PRN 11/27/19 11/16/21 History Inhaler] Fluticasone Nasal [place] [Flonase 1 spray EA NOSTRIL DAILY PRN 11/27/19 11/16/21 History Nasal [place]] Leflunomide [Arava] 20 mg PO Q48H 11/27/19 11/16/21 History Meloxicam [Mobic] 7.5 mg PO BID 11/27/19 11/16/21 History Sertraline HCl [Zoloft] 100 mg PO DAILY 11/27/19 11/16/21 History Cholecalciferol [Vitamin D3 (25 25 mcg PO TID 11/16/21 11/16/21 History Mcg = 1000 Iu)] Esomeprazole Magnesium [NexIUM 20 mg PO DAILY 11/16/21 11/16/21 History 24Hr] Loratadine-Pseudoeph 5-120 mg 1 tab PO Q12HR PRN 11/16/21 11/16/21 History [Claritin-D 12 Hour] Pregabalin [Lyrica] 150 mg PO TID 11/16/21 11/16/21 History Allergies Allergy/AdvReac Type Severity Reaction Status Date / Time amoxicillin [From Augmentin] Allergy Nausea Verified 11/16/21 21:44 aripiprazole [From Abilify] Allergy Unknown Verified 11/16/21 21:44 clavulanic acid Allergy Nausea Verified 11/16/21 21:44 [From Augmentin] methotrexate Allergy ringing in Verified 11/16/21 21:44 ears Sulfa (Sulfonamide Allergy Rash/Hives, Verified 11/16/21 21:44 Antibiotics) itchy Physical Exam Vitals: Vital Signs Temp Pulse Pulse Resp BP Pulse Ox 11/17/21 06:41 77 18 129/62 94 L 11/17/21 02:21 89 16 133/66 93 L 11/16/21 23:50 92 10 L 134/62 94 L 11/16/21 23:40 92 16 134/62 93 L 11/16/21 23:30 92 15 134/62 93 L 11/16/21 23:20 89 14 134/62 94 L 11/16/21 23:10 88 15 134/62 94 L 11/16/21 22:50 99 18 153/80 93 L 11/16/21 22:40 98 13 153/80 92 L 11/16/21 22:30 100 12 153/80 92 L 11/16/21 22:20 101 H 12 153/80 92 L 11/16/21 22:10 99 16 153/80 93 L 11/16/21 22:00 96 16 176/79 94 L 11/16/21 21:50 96 16 176/79 94 L 11/16/21 21:40 97 12 176/79 95 11/16/21 21:30 95 15 176/79 96 11/16/21 21:20 93 16 176/79 97 11/16/21 21:10 90 16 176/79 96 11/16/21 21:00 89 14 176/136 94 L 11/16/21 20:50 90 15 176/136 87 L 11/16/21 20:40 87 15 176/136 87 L 11/16/21 20:33 82 16 176/136 95 11/16/21 20:30 96 23 176/136 92 L 11/16/21 20:20 91 14 176/136 94 L 11/16/21 20:10 92 17 176/136 11/16/21 20:00 84 15 171/94 93 L 11/16/21 19:57 77 11/16/21 19:50 84 64 H 171/94 99 11/16/21 19:42 87 L 11/16/21 19:41 98.7 F 79 16 171/94 98 Intake and Output 11/16/21 11/17/21 11/17/21 22:59 06:59 14:59 Other: Weight 110 kg Results CBC & Chem 7: 11/17/21 05:31 11/17/21 05:31 Labs: Abnormal Lab Results - Last 24 Hours (Table) 11/17/21 11/17/21 Range/Units 05:31 05:31 MCHC 31.1 L (32.0-37.0) g/dL Carbon Dioxide 27.8 H (20.0-27.5) mmol/L Anion Gap 8.20 L (10.00-18.00) mmol/L BUN/Creatinine Ratio 24.00 H (12.00-20.00) Ratio Glucose 144 H (70-110) mg/dL
[2021-11-17] MEDS ORDERED: LACTATED RINGERS 1,000 ML IV ONE (18:01)
[2021-11-17] MEDS ORDERED: SODIUM CHLORIDE 0.9% 50 ML with ceFAZolin 3,000 MG IV ONE ×2 (18:10)
--- NOTE | 2021-11-17 18:45 | P.OP ---
Date of Procedure: 11/17/21 Preoperative Diagnosis: Dislocated right total hip arthroplasty Postoperative Diagnosis: Dislocated right total hip arthroplasty Procedure(s) Performed: Attempted closed reduction and open reduction right total hip arthroplasty Anesthesia: ESSIE Surgeon: Fred Oliveira Lens Assorter #1: James Duran Estimated Blood Loss (ml): 50 Pathology: none sent Condition: stable Disposition: PACU Indications for Procedure: This is a 66-year-old female that has had a right total hip arthroplasty approximately 2 years ago. Hip arthroplasty was functioning well when yesterday she slipped and twisted her right hip and fell to the floor. She was transported to the hospital and diagnosed with a dislocation of right total hip arthroplasty. Multiple attempted reductions were attempted but were unsuccessful. Patient was then transported to [facility] for further care. I saw and evaluated the patient emergency room, and after discussing the surgical and nonsurgical treatment options with her and her at length, I recommended an attempted closed reduction under general anesthetic with possible open reduction if necessary. Informed consent was obtained. Operative Findings: The operative findings are consistent with a closed dislocated right total hip arthroplasty with the femoral head incarcerated under the rectus femoris muscle. Description of Procedure: Patient was seen and evaluated in the preoperative area and the consent was reviewed. The operative site was marked with a skin marker. The patient was then brought to the operating room and given preoperative antibiotics intr avenously.. A general anesthetic was administered by the anesthesia department. The patient was then placed on the [place] table with the bony prominences well- padded. . A universal timeout was then performed, which confirmed the patient's name, surgical site, ALLERGIES, and procedure being performed on the consent. An attempt at a close reduction was then performed. Despite multiple attempts and the use of fluoroscopy, the hip was unable to be reduced. The decision to convert to an open reduction was then made. The hip area was then prepped with a ChloraPrep solution and draped in the usual sterile fashion. Next the incision site was located at 1 cm distal and 2 cm lateral to the anterior superior iliac spine along her prior incision. The skin and subcutaneous tissues were sharply incised. Incision was carefully dissected down to the fascia overlying the tensor fascia sue muscle. This fascia was then incised in line with the incision. Care was taken to stay laterally in order to avoid injuring the lateral femoral cutaneous nerve. Next, using blunt finger dissection, the tensor fascia sue muscle was dissected off its investing fascia. The muscle was then carefully retracted laterally with a cobra retractor over the lateral neck of the femur. The femoral head was then visualized and found to be incarcerated under the rectus femoris muscle. The femoral head was then carefully dissected and extracted from the rectus femoris muscle. The femoral component and femoral head were inspected and found to be intact without any damage. Acetabulum was also inspected and found to be intact without any damage. T the hip was gently reduced with the aid of the [place] table. Fluoroscopy was then used to check position of the components, as well as to ensure equal leg lengths. The hip was taken through range of motion and stressed in all degrees of motion and found to be stable. Final fluoroscopic x-rays confirmed that the components were in anatomic position, as well as equal leg lengths. The hip was also taken through range of motion, and found to be stable. The hip was then copiously irrigated with antibiotic solution with pulsatile lavage. The fascia was then closed with 2-0 strata fix suture. The subcutaneous tissue was closed with 3-0 Vicryl. The subcuticular tissue was closed with 3-0 strata fix suture. The skin was then closed with Exofin skin glue. After the glue and dried, and Optifoam silver impregnated dressing was applied. The patient was then transferred to the recovery room in stable condition. The orthotics prosthetics assistant AYE Neri was required due to the complexity of surgery, and the need for skilled casting assistant for positioning, draping, exposure, retraction, and closure of the wound.
--- NOTE | 2021-11-17 18:53 | FL ---
EXAMINATION TYPE: FL guidance operating room, XR Hip Limited RT DATE OF EXAM: 11/17/2021 COMPARISON: NONE HISTORY: 66-year-old female dislocation TECHNIQUE: Intraoperative fluoroscopy. FINDINGS: Intraoperative fluoroscopy during closed reduction of the prosthetic right hip. FLUOROSCOPY Fluoroscopy time of 51 seconds was used during closed reduction of the prosthetic right hip.. 3 imag e/s document/s the procedure. IMPRESSION: Intraoperative fluoroscopy as above.
[2021-11-17] MEDS ORDERED: HYDROcodone/APAP 5-325MG 1 EACH TAB PO PRN (19:21)
[2021-11-17] MEDS ORDERED: HYDROmorphone 0.5 MG/0.5 ML SYRINGE IVP PRN ×3 (19:21)
[2021-11-17] MEDS ORDERED: HYDROcodone/APAP 7.5-325MG 1 EACH TAB PO PRN (19:21)
[2021-11-17] MEDS ORDERED: MAGNESIUM HYDROXIDE 2,400 MG/10 ML CUP PO PRN (19:21)
[2021-11-17] MEDS ORDERED: hydrOXYzine pamoate 25 MG CAP PO PRN (19:21)
[2021-11-17] MEDS ORDERED: HYDROmorphone 0.5 MG/0.5 ML SYRINGE IVP ONE ×3 (19:25→20:15)
[2021-11-17] MEDS ORDERED: hydrALAZINE HCL 20 MG/ML 1 ML VIAL IVP ONE ×2 (20:02→20:15)
--- NOTE | 2021-11-17 20:08 | XR ---
EXAMINATION TYPE: XR Hip Limited RT DATE OF EXAM: 11/17/2021 COMPARISON: Yesterday HISTORY: Hip surgery TECHNIQUE: Single view FINDINGS: There is right hip prosthesis. Components appear in anatomic position. IMPRESSION: No complicating process seen. There is anatomic reduction of the prosthetic femoral head compared to exam yesterday.
[2021-11-17] MEDS ORDERED: SODIUM CHLORIDE 0.9% 1,000 ML IV ONE (21:02)
[2021-11-17] MEDS: SENNOSIDES-DOCUSATE SODIUM 1 EACH TAB PO SCH (21:57)
[2021-11-17] MEDS: ASPIRIN 325 MG TAB PO SCH (21:57)
[2021-11-17] MEDS: SODIUM CHLORIDE 0.9% 1,000 ML IV SCH (23:00)
--- NOTE | 2021-11-18 08:46 | P.PN ---
Subjective Progress Note Date: 11/18/21 Principal diagnosis: Dislocated right total hip. Status post open reduction right total hip. This is a 58-year-old female who is postop day #1 status post attempted to close reduction and subsequent open reduction right total hip dislocation. The patient is doing well from an orthopedic standpoint. She has no new complaints or concerns today. She has not yet worked with physical therapy. Objective - Vital Signs Vital signs: Vital Signs Temp 98.5 F 11/18/21 07:43 Pulse 86 11/18/21 07:43 Resp 18 11/18/21 07:43 BP 92/61 11/18/21 07:43 Pulse Ox 94 L 11/18/21 08:08 FiO2 44 11/17/21 22:20 Intake & Output 11/17/21 11/18/21 11/18/21 18:59 06:59 18:59 Intake Total 450 750 Output Total 50 700 Balance 400 50 Weight 110 kg Intake: IV 450 750 Output: Urine 700 Estimated Blood Loss 50 Other: Voiding Method Indwelling Catheter # Voids 0 - Exam This is a pleasant 58-year-old female in no acute distress. She is alert and oriented 3. Exam of the right hip reveals dressing is clean, dry and intact. Leg lengths are equal. She has full foot and ankle motion without difficulty or pain. Neurovascular status to the lower extremity is intact. - Labs CBC & Chem 7: 11/17/21 05:31 11/17/21 05:31 Labs: Abnormal Lab Results - Last 24 Hours (Table) 11/17/21 11/17/21 Range/Units 05:31 05:31 MCHC 31.1 L (32.0-37.0) g/dL Carbon Dioxide 27.8 H (20.0-27.5) mmol/L Anion Gap 8.20 L (10.00-18.00) mmol/L BUN/Creatinine Ratio 24.00 H (12.00-20.00) Ratio Glucose 144 H (70-110) mg/dL Assessment and Plan (1) Hip dislocation, right Current Visit: Yes Status: Acute Code(s): S73.004A - UNSPECIFIED DISLOCATION OF RIGHT HIP, INITIAL ENCOUNTER SNOMED Code(s): 304722903 (2) Osteoarthritis of right hip Current Visit: No Status: Acute Code(s): M16.11 - UNILATERAL PRIMARY OSTEOARTHRITIS, RIGHT HIP SNOMED Code(s): 322446060659234 Plan: The clinical findings are discussed with the patient. She'll begin physical therapy today. Anticipate discharge to home tomorrow.
[2021-11-18] MEDS: CHOLECALCIFEROL 25 MCG (1000 IU) TABLET PO SCH ×3 (08:51→21:41)
[2021-11-18] MEDS: SERTRALINE 100 MG TAB PO SCH (08:51)
[2021-11-18] MEDS: PANTOPRAZOLE 40 MG TABLET PO SCH (08:52)
[2021-11-18] MEDS: PREGABALIN 75 MG CAP PO SCH ×3 (08:52→21:41)
[2021-11-18] MEDS: SODIUM CHLORIDE 0.9% 1,000 ML IV SCH (08:53)
[2021-11-18] MEDS: ASPIRIN 325 MG TAB PO SCH ×2 (09:03→21:41)
[2021-11-18] MEDS ORDERED: LEFLUNOMIDE 20 MG TAB PO SCH (09:15)
[2021-11-18 10:49] LABS: Basophils # (A) 0.04 X 10*3/uL (0.00-0.10); Basophils % (A) 0.5 %; Eosinophils # (A) 0.05 X 10*3/uL (0.04-0.35); Eosinophils % (A) 0.6 %; HCT 39.3 % (37.2-46.3); HGB 12.4 g/dL (12.0-15.0); Immature Grans, Automated 0.3 %; Lymphocytes # (A) 0.75 X 10*3/uL (0.90-5.00); Lymphocytes % (A) 8.5 %; MCH 28.6 pg (27.0-32.0); MCHC 31.6 g/dL (32.0-37.0); MCV 90.8 fL (80.0-97.0); Mean Platelet Volume 11.3 fL (9.5-12.2); Monocytes # (A) 0.65 X 10*3/uL (0.20-1.00); Monocytes % (A) 7.3 %; NRBC Per 100 WBC 0 /100 WBCS (0.0-0.0); Neutrophils # (A) 7.33 X 10*3/uL (1.80-7.70); Neutrophils % (A) 82.8 %; Platelet Count 213 X 10*3/uL (140-440); RBC 4.33 X 10*6/uL (4.10-5.20); WBC 8.85 X 10*3/uL (4.50-10.00)
[2021-11-18] MEDS ORDERED: LORATADINE 10 MG TAB PO STA (12:16)
[2021-11-18] MEDS: ALBUTEROL NEBULIZED 2.5 MG/3 ML INHALATION PRN ×2 (13:01→20:31)
[2021-11-18 13:45] VITALS: RESP 17
--- NOTE | 2021-11-18 15:50 | P.PN ---
Subjective Progress Note Date: 11/18/21 66-year-old female with a history of lumbar arthritis came in after a mechanical fall and had right hip patient had right hip arthroplasty about any ago. Patient does have pain. Patient does have history of rheumatoid arthritis and patient denied any coronary artery disease patient is not a smoker. Patient denied any history of can start failure and her functionality is good. 11/18/2021 Patient is postoperative open reduction of right hip. She reports no pain today, she is pending evaluation by physical therapy and states plan is for discharge tomorrow. She used CPAP last night and did require oxygen via nasal cannula states her sats were at 84%. She is weaned off oxygen today and is on room air at the time of my exam. She does have some scatter coarse rhonci more in the right base, no wheezing. She states she was treated for bronchitis and UTI outpatient. She states she was at the tail end of having bronchitis. She has ventolin nebulizer on board which we will recommend to receive today and overnight. Was also supposed to have follow up at primary care office for repeat urinalysis which we will defer as she reports no dysuria, no urgency, and no urinary frequency. She also requesting claritin. No white count. Remains afebrile. Review of Systems Constitutional: Denied any fatigue denied any fever. Cardio vascular: denied any chest pain, palpitations Gastrointestinal: denied any nausea, vomiting, diarrhea Pulmonary: Denied any shortness of breath cough She does have post nasal drip. Neurologic denied any new focal deficits All inpatient medications were reviewed and appropriate changes in these medications as dictated in the interval history and assessment and plan. REVIEW OF SYSTEMS: CONSTITUTIONAL: No fever, no malaise, no fatigue. HEENT: No recent visual problems or hearing problems. Denied any sore throat. CARDIOVASCULAR: No chest pain, orthopnea, PND, no palpitations, no syncope. PULMONARY: No shortness of breath, no cough, no hemoptysis. GASTROINTESTINAL: No diarrhea, no nausea, no vomiting, no abdominal pain. NEUROLOGICAL: No headaches, no weakness, no numbness. HEMATOLOGICAL: Denies any bleeding or petechiae. GENITOURINARY: Denies any burning micturition, frequency, or urgency. MUSCULOSKELETAL/RHEUMATOLOGICAL: Pain in the right hip ENDOCRINE: Denies any polyuria or polydipsia. The rest of the 14-point review of systems is negative. PHYSICAL EXAMINATION: GENERAL: The patient is alert and oriented x3, not in any acute distress. Well d eveloped, well nourished. HEENT: Pupils are round and equally reacting to light. EOMI. No scleral icterus. No conjunctival pallor. Normocephalic, atraumatic. No pharyngeal erythema. No thyromegaly. CARDIOVASCULAR: S1 and S2 present. No murmurs, rubs, or gallops. PULMONARY: Faint scattered rhonchi more right base than left ABDOMEN: Soft, nontender, nondistended, normoactive bowel sounds. No palpable organomegaly. MUSCULOSKELETAL: Pain in the right hip and deferred exam to orthopedic surgery EXTREMITIES: No cyanosis, clubbing, or pedal edema. NEUROLOGICAL: Gross neurological examination did not reveal any focal deficits. SKIN: No rashes. Assessment and plan -Postoperative day #1 open reduction for right hip dislocation -Rheumatoid arthritis can resume Arava -Depression -Gastroesophageal reflux disease -Recent treatment for bronchitis continue on ventolin nebulizer and continue to encourage incentive spirometer DVT prophylaxis: As per primary service GI Prophylaxis: Protonix Full Code Thank you for this consultation The impression and plan of care has been dictated by Verena Valencia Nurse Practitioner as directed. Dr. Kaiser MD I have performed a history and physical examination and medical decision making of this patient, discussed the same with the dictator, and agree with the dictators assessment and plan as written, documented as a scribe. Based on total visit time, I have performed more than 50% of this visit. Objective - Vital Signs Vital signs: Vital Signs Temp 98.5 F 11/18/21 13:43 Pulse 100 11/18/21 13:43 Resp 17 11/18/21 13:43 BP 144/59 11/18/21 13:43 Pulse Ox 95 11/18/21 13:43 FiO2 44 11/17/21 22:20 Intake & Output 11/17/21 11/18/21 11/18/21 18:59 06:59 18:59 Intake Total 450 750 Output Total 50 700 Balance 400 50 Weight 110 kg Intake: IV 450 750 Output: Urine 700 Estimated Blood Loss 50 Other: Voiding Method Indwelling Catheter # Voids 0 - Labs CBC & Chem 7: 11/18/21 07:45 11/17/21 05:31 Labs: Abnormal Lab Results - Last 24 Hours (Table) 11/18/21 Range/Units 07:45 MCHC 31.6 L (32.0-37.0) g/dL Lymphocytes # 0.75 L (0.90-5.00) X 10*3/uL Assessment and Plan Time with Patient: Less than 30
[2021-11-18] MEDS: SENNOSIDES-DOCUSATE SODIUM 1 EACH TAB PO SCH (21:41)
[2021-11-19 01:39] VITALS: TEMP 97.9
[2021-11-19] MEDS: SODIUM CHLORIDE 0.9% 1,000 ML IV SCH ×2 (01:58→12:56)
[2021-11-19 08:04] VITALS: BP 138/77; PULSE 80
[2021-11-19] MEDS: ASPIRIN 325 MG TAB PO SCH (08:23)
[2021-11-19] MEDS: CHOLECALCIFEROL 25 MCG (1000 IU) TABLET PO SCH (08:23)
[2021-11-19] MEDS: PREGABALIN 75 MG CAP PO SCH (08:23)
[2021-11-19] MEDS: PANTOPRAZOLE 40 MG TABLET PO SCH (08:23)
[2021-11-19] MEDS: SERTRALINE 100 MG TAB PO SCH (08:23)
--- NOTE | 2021-11-19 09:32 | P.DS ---
Providers Date of admission: 11/17/21 07:30 Expected date of discharge: 11/19/21 Attending physician: Fred Oliveira Consults: 11/16/21 20:19 Consult Physician Urgent Consulting Provider: Ed Philippe Consult Reason/Comments: medical management Do you want consulting provider notified?: Yes Primary care physician: Wendy Dawson - Discharge Diagnosis(es) (1) Hip dislocation, right Current Visit: Yes Status: Acute (2) Osteoarthritis of right hip Current Visit: No Status: Acute Hospital Course: This patient is a 66-year-old female with past medical history rheumatoid arthritis, fibromyalgia who presented to [facility] emergency department On 11/17/2021 after transfer from [facility] in [place], [place] for right hip dislocation. The patient is status-post direct anterior right total hip arthroplasty in [place] [address] Oliveira. Patient states she was in her kitchen yesterday and slipped on a wet floor, landing directly onto the right hip. She experienced immediate pain and inability to get up. Her called EMS, who transported the patient to [facility] emergency department. X-rays in the emergency department revealed a dislocated right total hip. There were 2 unsuccessful attempts at closed reduction by the ER physician, as well as an on-call orthopedic surgeon. The patient was transferred to [facility] emergency department for further evaluation by Dr. Oliveira. Patient is admitted under the care of Dr. Oliveira with a consulted placed to internal medicine. The patient was found to have a hip dislocation. She was taken to the operating room on 11/17/2021 for attempted closed reduction which was unsuccessful. Open reduction was performed. Postreduction x-rays showed that the hip was in good position and alignment. The patient did well postoperatively. She did have increased drainage to her incision. A compressive dressing was placed today. She may be discharged to home today in stable condition. Please see med rec for accurate list of home medications. Patient Condition at Discharge: Stable Plan - Discharge Summary Discharge Rx Participant: No New Discharge Prescriptions: New Aspirin 325 mg PO BID #60 tab HYDROcodone/APAP 5-325MG [Hanna 5] 1 each PO Q6HR PRN #28 tab PRN Reason: Pain Sennosides-Docusate Sodium [Senokot-S] 1 tab PO BID PRN #60 tablet PRN Reason: Constipation Ondansetron [Zofran] 4 mg PO Q6HR PRN #30 tab PRN Reason: Nausea No Action Fluticasone Nasal [place] [Flonase Nasal [place]] 1 spray EA NOSTRIL DAILY PRN PRN Reason: allergies Albuterol Inhaler [Ventolin Hfa Inhaler] 2 puff INHALATION RT-Q6H PRN PRN Reason: Shortness Of Breath Meloxicam [Mobic] 7.5 mg PO BID Leflunomide [Arava] 20 mg PO Q48H Sertraline HCl [Zoloft] 100 mg PO DAILY Pregabalin [Lyrica] 150 mg PO TID Cholecalciferol [Vitamin D3 (25 Mcg = 1000 Iu)] 25 mcg PO TID Esomeprazole Magnesium [NexIUM 24Hr] 20 mg PO DAILY Loratadine-Pseudoeph 5-120 mg [Claritin-D 12 Hour] 1 tab PO Q12HR PRN PRN Reason: Allergy Symptoms Discharge Medication List Albuterol Inhaler [Ventolin Hfa Inhaler] 2 puff INHALATION RT-Q6H PRN 11/27/19 [History] Fluticasone Nasal [place] [Flonase Nasal [place]] 1 spray EA NOSTRIL DAILY PRN 11/27/19 [History] Leflunomide [Arava] 20 mg PO Q48H 11/27/19 [History] Meloxicam [Mobic] 7.5 mg PO BID 11/27/19 [History] Sertraline HCl [Zoloft] 100 mg PO DAILY 11/27/19 [History] Cholecalciferol [Vitamin D3 (25 Mcg = 1000 Iu)] 25 mcg PO TID 11/16/21 [History] Esomeprazole Magnesium [NexIUM 24Hr] 20 mg PO DAILY 11/16/21 [History] Loratadine-Pseudoeph 5-120 mg [Claritin-D 12 Hour] 1 tab PO Q12HR PRN 11/16/21 [History] Pregabalin [Lyrica] 150 mg PO TID 11/16/21 [History] Aspirin 325 mg PO BID #60 tab 11/17/21 [Rx] HYDROcodone/APAP 5-325MG [Hanna 5] 1 each PO Q6HR PRN #28 tab 11/17/21 [Rx] Ondansetron [Zofran] 4 mg PO Q6HR PRN #30 tab 11/17/21 [Rx] Sennosides-Docusate Sodium [Senokot-S] 1 tab PO BID PRN #60 tablet 11/17/21 [Rx] Follow up Appointment(s)/Referral(s): Rodney Cruz, STACEY [PHYSICIAN BIT SHAVER] - 11/22/21 10:30 am (Incision check with BENJY Stevens on Monday. ) Wendy Dawson DO [Primary Care Provider] - 11/23/21 11:50 am Fred Oliveira DO [Doctor of Osteopathic Medicine] - 12/03/21 1:15 pm (Patient may follow-up with Dr. Fred Oliveira at [facility] in 2 weeks following discharge. ) Activity/Diet/Wound Care/Special Instructions: 1. Weight-bear as tolerated on right lower extremity 2. May utilize walker to aid in ambulation as needed 3. No specific hip precautions 4. Take medications as prescribed 5. Keep dressing over the right hip clean, dry, and intact over the next 7 days 6. Patient may shower with dressing over the right hip intact 7. Any questions or concerns please contact [facility] at [phone] 8. No outpatient physical therapy at this time 9. Follow-up with Dr. Oliveira on Monday to check incision. Discharge Disposition: HOME SELF-CARE
[2021-11-19 11:52] LABS: African American GFR (CKD) 76.1 (60.0-200.0); Anion Gap 8.2 mmol/L (10.00-18.00); BUN/Creat Ratio 22.44 Ratio (12.00-20.00); Blood Urea Nitrogen 20.2 mg/dL (9.0-27.0); Calcium 8.7 mg/dL (8.7-10.3); Carbon Dioxide 26.8 mmol/L (20.0-27.5); Non-African American GFR(CKD) 65.7 (60.0-200.0); Potassium 4.4 mmol/L (3.5-5.5)
--- NOTE | 2021-11-19 14:08 | P.PN ---
Subjective Progress Note Date: 11/19/21 66-year-old female with a history of lumbar arthritis came in after a mechanical fall and had right hip patient had right hip arthroplasty about any ago. Patient does have pain. Patient does have history of rheumatoid arthritis and patient denied any coronary artery disease patient is not a smoker. Patient denied any history of can start failure and her functionality is good. 11/18/2021 Patient is postoperative open reduction of right hip. She reports no pain today, she is pending evaluation by physical therapy and states plan is for discharge tomorrow. She used CPAP last night and did require oxygen via nasal cannula states her sats were at 84%. She is weaned off oxygen today and is on room air at the time of my exam. She does have some scatter coarse rhonci more in the right base, no wheezing. She states she was treated for bronchitis and UTI outpatient. She states she was at the tail end of having bronchitis. She has ventolin nebulizer on board which we will recommend to receive today and overnight. Was also supposed to have follow up at primary care office for repeat urinalysis which we will defer as she reports no dysuria, no urgency, and no urinary frequency. She also requesting claritin. No white count. Remains afebrile. 11/19/2021 Patient evaluated today she is post op open reduction right hip. She does have incisional leakage and dressing was changed twice per nurse. She will be discharged home today and will follow up in the office with orthopedics on Monday. Labs reviewed today showing sodium 145, potassium 4.4, Bun 20, creatinine 0.9, glucose 150. Recommend follow up A1C outpatient. Stop mobic and patient is started on aspirin 325 BID by primary. Gunner for bowel regimen while taking norco. Patient has an appointment with primary care on Monday. Review of Systems Constitutional: Denied any fatigue denied any fever. Cardio vascular: denied any chest pain, palpitations Gastrointestinal: denied any nausea, vomiting, diarrhea Pulmonary: Denied any shortness of breath cough She does have post nasal drip. Neurologic denied any new focal deficits All inpatient medications were reviewed and appropriate changes in these medications as dictated in the interval history and assessment and plan. REVIEW OF SYSTEMS: CONSTITUTIONAL: No fever, no malaise, no fatigue. HEENT: No recent visual problems or hearing problems. Denied any sore throat. CARDIOVASCULAR: No chest pain, orthopnea, PND, no palpitations, no syncope. PULMONARY: No shortness of breath, no cough, no hemoptysis. GASTROINTESTINAL: No diarrhea, no nausea, no vomiting, no abdominal pain. NEUROLOGICAL: No headaches, no weakness, no numbness. HEMATOLOGICAL: Denies any bleeding or petechiae. GENITOURINARY: Denies any burning micturition, frequency, or urgency. MUSCULOSKELETAL/RHEUMATOLOGICAL: Pain in the right hip ENDOCRINE: Denies any polyuria or polydipsia. The rest of the 14-point review of systems is negative. PHYSICAL EXAMINATION: GENERAL: The patient is alert and oriented x3, not in any acute distress. Well developed, well nourished. HEENT: Pupils are round and equally reacting to light. EOMI. No scleral icterus. No conjunctival pallor. Normocephalic, atraumatic. No pharyngeal erythema. No thyromegaly. CARDIOVASCULAR: S1 and S2 present. No murmurs, rubs, or gallops. PULMONARY: Faint scattered rhonchi more right base than left ABDOMEN: Soft, nontender, nondistended, normoactive bowel sounds. No palpable organomegaly. MUSCULOSKELETAL: Post surgical dressing in place. EXTREMITIES: No cyanosis, clubbing, or pedal edema. NEUROLOGICAL: Gross neurological examination did not reveal any focal deficits. SKIN: No rashes. Assessment and plan -Postoperative day #2 open reduction for right hip dislocation -Rheumatoid arthritis can resume Arava -Depression -Gastroesophageal reflux disease -Recent treatment for bronchitis continue on ventolin nebulizer and continue to encourage incentive spirometer DVT prophylaxis: As per primary service GI Prophylaxis: Protonix Full Code Medically patient is cleared for discharge Thank you for this consultation The impression and plan of care has been dictated by Verena Valencia, Nurse Practitioner as directed. Dr. Kaiser MD I have performed a history and physical examination and medical decision making of this patient, discussed the same with the dictator, and agree with the dictators assessment and plan as written, documented as a scribe. Based on total visit time, I have performed more than 50% of this visit. Objective - Vital Signs Vital signs: Vital Signs Temp 97.9 F 11/19/21 07:59 Pulse 80 11/19/21 07:59 Resp 17 11/19/21 07:59 BP 138/77 11/19/21 07:59 Pulse Ox 94 L 11/19/21 08:33 FiO2 44 11/17/21 22:20 Intake & Output 11/18/21 11/19/21 11/19/21 18:59 06:59 18:59 Intake Total 1999 Balance 1999 Intake: Oral 1999 Other: Voiding Method Toilet # Voids 3 4 - Labs CBC & Chem 7: 11/18/21 07:45 11/19/21 07:05 Labs: Abnormal Lab Results - Last 24 Hours (Table) 11/18/21 Range/Units 07:45 MCHC 31.6 L (32.0-37.0) g/dL Lymphocytes # 0.75 L (0.90-5.00) X 10*3/uL Assessment and Plan Time with Patient: Less than 30
== END 2021-11-19 14:05 | disposition home or self-care (01) | DRG 481 ==
LOC: EC 19:36 → 4SSUR 20:19 → OBSVTOIN 11-17 07:30 → 4SSUR 11-17 13:27
PROVIDERS: ADMIT Orthopaedic Surgery; ATTEND Orthopaedic Surgery
PROC: 0QS Lower Bones, Reposition (ICD-10-PCS; principal; 2021-11-17 13:45)
DX: T84.020A Dislocation of internal right hip prosthesis, initial encounter (principal); S52.502A Unspecified fracture of the lower end of left radius, initial encounter for closed fracture; W01.0XXA Fall on same level from slipping, tripping and stumbling without subsequent striking against object, initial encounter; X50.1XXA Overexertion from prolonged static or awkward postures, initial encounter; Y92.010 Kitchen of single-family (private) house as the place of occurrence of the external cause; Y79.2 Prosthetic and other implants, materials and accessory orthopedic devices associated with adverse incidents; M79.7 Fibromyalgia; M16.11 Unilateral primary osteoarthritis, right hip; E78.5 Hyperlipidemia, unspecified; F32.A Depression, unspecified; I10 Essential (primary) hypertension; J40 Bronchitis, not specified as acute or chronic; K21.9 Gastro-esophageal reflux disease without esophagitis; M06.9 Rheumatoid arthritis, unspecified; Z79.1 Long term (current) use of non-steroidal anti-inflammatories (NSAID); Z79.82 Long term (current) use of aspirin; Z79.899 Other long term (current) drug therapy; Z80.8 Family history of malignant neoplasm of other organs or systems; Z82.49 Family history of ischemic heart disease and other diseases of the circulatory system; Z87.891 Personal history of nicotine dependence; Z88.1 Allergy status to other antibiotic agents; Z88.0 Allergy status to penicillin; Z88.2 Allergy status to sulfonamides; Z96.653 Presence of artificial knee joint, bilateral; Z96.641 Presence of right artificial hip joint
CPT/HCPCS: 73501; 80048; 85025; 94640; 94760; 96374; 96376; 99285

== ENCOUNTER 2022-01-02 03:33 | Inpatient (IN) | payer MEDICARE, OTHER ==
--- NOTE | 2022-01-02 03:40 | ED ---
Recheck HPI - General Stated Complaint: Right hip dislocation Time Seen by Provider: 01/02/22 03:39 Source: RN notes reviewed, old records reviewed Mode of arrival: EMS Limitations: no limitations - History of Present Illness Initial Comments: This is a 58-year-old female to the emergency department for evaluation. Patient presents with recent hip surgery less than 2 months and recurrent right hip dislocation. Patient had 5 relocation attempts at prior hospital and presented to our hospital for evaluation of persistent right hip pain. Patient states she was just making hospital illness injury occurred has severe right hip pain. MD Complaint: other (Recurrent right hip dislocation) -: hour(s) Returns Today for: persistent/worsening pain related to initial visit, other (Recurrent right hip dislocation) Symptoms Since Prior Visit: worsening pain, worsening swelling Treatments Prior to Arrival: Given Pain Meds on - Related Data Home Medications Medication Instructions Recorded Confirmed Albuterol Inhaler [Ventolin Hfa 2 puff INHALATION RT-Q6H PRN 11/27/19 11/16/21 Inhaler] Fluticasone Nasal [place] [Flonase 1 spray EA NOSTRIL DAILY PRN 11/27/19 11/16/21 Nasal [place]] Leflunomide [Arava] 20 mg PO Q48H 11/27/19 11/16/21 Sertraline HCl [Zoloft] 100 mg PO DAILY 11/27/19 11/16/21 Cholecalciferol [Vitamin D3 (25 25 mcg PO TID 11/16/21 11/16/21 Mcg = 1000 Iu)] Esomeprazole Magnesium [NexIUM 20 mg PO DAILY 11/16/21 11/16/21 24Hr] Pregabalin [Lyrica] 150 mg PO TID 11/16/21 11/16/21 Previous Rx's Medication Instructions Recorded Aspirin 325 mg PO BID #60 tab 11/17/21 HYDROcodone/APAP 5-325MG [[place] 5] 1 each PO Q6HR PRN #28 tab 11/17/21 Ondansetron [Zofran] 4 mg PO Q6HR PRN #30 tab 11/17/21 Sennosides-Docusate Sodium 1 tab PO BID PRN #60 tablet 11/17/21 [Senokot-S] Allergies Allergy/AdvReac Type Severity Reaction Status Date / Time amoxicillin [From Augmentin] Allergy Nausea Verified 11/17/21 17:27 aripiprazole [From Abilify] Allergy Unknown Verified 11/17/21 17:27 clavulanic acid Allergy Nausea Verified 11/17/21 17:27 [From Augmentin] levofloxacin [From Levaquin] Allergy Unknown Verified 11/17/21 17:27 methotrexate Allergy ringing in Verified 11/17/21 17:27 ears Sulfa (Sulfonamide Allergy Rash/Hives, Verified 11/17/21 17:27 Antibiotics) itchy Review of Systems ROS Statement: Those systems with pertinent positive or pertinent negative responses have been documented in the HPI. ROS Other: All systems not noted in ROS Statement are negative. Past Medical History Past Medical History: Fibromyalgia, GERD/Reflux, Osteoarthritis (OA), Rheumatoid Arthritis (RA), Sleep Apnea/CPAP/BIPAP Additional Past Medical History / Comment(s): seasonal allergies, has cpap,lymphdema rt arm History of Any Multi-Drug Resistant Organisms: None Reported Past Surgical History: Cholecystectomy, Hysterectomy, Joint Replacement, Orthopedic Surgery, Tonsillectomy Additional Past Surgical History / Comment(s): 2 large lipomas removed rt axillae, 3 total knee lt x1,rt knee x2 replacement,lipoma removed from back,ermias carpal tunnel,tendon release middle finger and thumbs ermias., ermias thumb joints Past Anesthesia/Blood Transfusion Reactions: No Reported Reaction Past Psychological History: Depression Smoking Status: Former smoker Past Alcohol Use History: Rare Past Drug Use History: None Reported - Past Family History Sister(s) Family Medical History: Cancer Additional Family Medical History / Comment(s): skin cancer Brother(s) Family Medical History: Cancer Additional Family Medical History / Comment(s): skin cancer Father Family Medical History: Myocardial Infarction ([place]) Additional Family Medical History / Comment(s): Father of a [place] at the age of 65yrs. Mother Family Medical History: No Reported History Additional Family Medical History / Comment(s): Mother was healthy and lived to be 96yrs old. General Exam - General Exam Comments Initial Comments: Left hip is disfigured and dislocated General appearance: alert, in no apparent distress Head exam: Present: atraumatic, normocephalic, normal inspection Eye exam: Present: normal appearance, PERRL, EOMI. Absent: scleral icterus, conjunctival injection, periorbital swelling ENT exam: Present: normal exam, mucous membranes moist Neck exam: Present: normal inspection. Absent: tenderness, meningismus, lymphadenopathy Respiratory exam: Present: normal lung sounds bilaterally. Absent: respiratory distress, wheezes, rales, rhonchi, stridor Cardiovascular Exam: Present: regular rate, normal rhythm, normal heart sounds. Absent: systolic murmur, diastolic murmur, rubs, gallop, clicks GI/Abdominal exam: Present: soft, normal bowel sounds. Absent: distended, tenderness, guarding, rebound, rigid Extremities exam: Present: normal inspection, full ROM, normal capillary refill. Absent: tenderness, pedal edema, joint swelling, calf tenderness Back exam: Present: normal inspection Neurological exam: Present: alert, oriented X3, CN II-XII intact Psychiatric exam: Present: normal affect, normal mood Skin exam: Present: warm, dry, intact, normal color. Absent: rash Course - Reevaluation(s) Reevaluation #1: 01/02/22 04:02 Medical records reviewed Reevaluation #2: 01/02/22 04:02 Patient's pain is controlled Reevaluation #3: 01/02/22 04:02 Patient informed of results and questions answered - Consultations Consultation #1: [facility] who will admit this patient for evaluation and treatment Medical Decision Making - Medical Decision Making 58 female recurrent left hip dislocation within 2 months of right hip surgery. Patient is having persistent pain in that right hip with recurrent dislocation currently. Patient [place] for orthopedic evaluation and management - Radiology Data Radiology results: report reviewed (X-ray pelvis does show dislocated left hip), image reviewed Disposition Clinical Impression: S/P total hip arthroplasty, Hip dislocation, right Disposition: ADMITTED IP TO THIS [facility] Condition: Fair Is patient prescribed a controlled substance at d/c from ED?: No Referrals: Wendy Dawson DO [Primary Care Provider] - 1-2 days Time of Disposition: 04:00
[2022-01-02] MEDS ORDERED: ONDANSETRON 4 MG/2 ML VIAL IVP PRN (03:58)
[2022-01-02] MEDS ORDERED: NALOXONE 0.4 MG/ML 1 ML VIAL IV PRN (03:58)
--- NOTE | 2022-01-02 04:41 | XR ---
EXAMINATION TYPE: XR pelvis AP view DATE OF EXAM: 01/02/2022 COMPARISON: NONE HISTORY: Hip dislocation TECHNIQUE: 2 views FINDINGS: There is right hip prosthesis. There is a lateral superior dislocation of the right femoral head. The pelvic ring is intact. Proximal left femur and hip joint are intact. There is left-sided a cetabular spurring. IMPRESSION: Dislocated right hip prosthesis.
[2022-01-02] MEDS: SODIUM CHLORIDE 0.9% 1,000 ML IV SCH (07:31)
[2022-01-02] MEDS: MORPHINE SULFATE 4 MG/ML SYRINGE IV PRN ×2 (07:31→19:50)
[2022-01-02] MEDS ORDERED: PANTOPRAZOLE 40 MG/10 ML VIAL IV SCH (09:00)
[2022-01-02] MEDS ORDERED: SENNOSIDES-DOCUSATE SODIUM 1 EACH TAB PO PRN (09:08)
--- NOTE | 2022-01-02 09:12 | P.CONS ---
History of Present Illness - Reason for Consult Consult date: 01/02/22 - History of Present Illness Patient is a 66-year-old female with PMH of hypertension, depression, neuropathic pain, rheumatoid arthritis, GERD, obstructive sleep apnea presents ED for sudden onset right hip pain. Patient reports undergoing hip surgery with Dr. Oliveira 8 weeks ago. Since then, she has experienced multiple dislocations requiring surgical intervention. She reports restricted range of motion in her right hip along with pain, 10 out of 10 in severity. She reports the pain to be sharp and stabbing in nature. This prompted her to come to the ED. She has been admitted under orthopedic surgery with [facility] on consult. Patient denies any headache, lower extremity edema, nausea or vomiting, fever chills, cough, chest pain, shortness of breath, palpitations, changes in urination or bowel habits. No changes in appetite or weight. She denies any dizziness. Pelvic x-ray in the ED showed dislocated right hip prosthesis. She reports no history of CAD or CVA. Review of systems is being performed and is negative except above. Her vital signs are stable. General: [non toxic], [no distress], [appears at stated age] Derm: [warm], [dry] Head: [atraumatic], [normocephalic], [symmetric] Eyes: [EOMI], [no lid lag], [anicteric sclera] Mouth: [no lip lesion], [mucus membranes moist] Cardiovascular: [S1S2 reg], [no murmur], [positive DP pulse bilateral], Lungs: [CTA bilateral], [no rhonchi, no rales] , [no accessory muscle use] Abdominal: [soft], [ nontender to palpation], [no guarding], [no appreciable organomegaly] Ext: [no gross muscle atrophy], [no edema], [restricted range of motion of the right hip due to pain] Neuro: [no focal neuro deficits] Psych: [Alert], [oriented], [appropriate affect] #Hypertension #Depression #Rheumatoid arthritis #Neuropathic pain #GERD #Obstructive sleep apnea #Right hip dislocation Patient restarted on lisinopril 5 mg by mouth daily. Monitor vitals, adjust medication if necessary. Restart sertraline. Restart leflunomide. Restart Lyrica. Restart Nexium. CPAP at bedtime. Orthopedic surgery has been consulted for management of right hip dislocation. Pain management deferred to orthopedic surgery. PT and OT will be consulted to work with this patient. Patient be placed on fall precautions. DVT prophylaxis: [Heparin] Discussed with: [Patient] Anticipated discharge: [2-3 days] Anticipated discharge place: [Home] A total of [35] minutes was spent on the care of this complex patient more than 50% of the time was spent in counseling and care coordination. Patient is her decision maker if she can't make decisions for herself. Patient would like to be full code. Past Medical History Past Medical History: Fibromyalgia, GERD/Reflux, Osteoarthritis (OA), Rheumatoid Arthritis (RA), Sleep Apnea/CPAP/BIPAP Additional Past Medical History / Comment(s): seasonal allergies, has cpap,lymphdema rt arm History of Any Multi-Drug Resistant Organisms: None Reported Past Surgical History: Cholecystectomy, Hysterectomy, Joint Replacement, Orthopedic Surgery, Tonsillectomy Additional Past Surgical History / Comment(s): 2 large lipomas removed rt axillae, 3 total knee lt x1,rt knee x2 replacement,lipoma removed from back,ermias carpal tunnel,tendon release middle finger and thumbs ermias., ermias thumb joints Past Anesthesia/Blood Transfusion Reactions: No Reported Reaction Past Psychological History: Depression Smoking Status: Former smoker Past Alcohol Use History: Rare Past Drug Use History: None Reported - Past Family History Sister(s) Family Medical History: Cancer Additional Family Medical History / Comment(s): skin cancer Brother(s) Family Medical History: Cancer Additional Family Medical History / Comment(s): skin cancer Father Family Medical History: Myocardial Infarction ([place]) Additional Family Medical History / Comment(s): Father of a PR at the age of 65yrs. Mother Family Medical History: No Reported History Additional Family Medical History / Comment(s): Mother was healthy and lived to be 96yrs old. Medications and Allergies Home Medications Medication Instructions Recorded Confirmed Type Albuterol Inhaler [Ventolin Hfa 2 puff INHALATION RT-Q6H PRN 11/27/19 11/16/21 History Inhaler] Fluticasone Nasal [place] [Flonase 1 spray EA NOSTRIL DAILY PRN 11/27/19 11/16/21 History Nasal [place]] Leflunomide [Arava] 20 mg PO Q48H 11/27/19 11/16/21 History Sertraline HCl [Zoloft] 100 mg PO DAILY 11/27/19 11/16/21 History Cholecalciferol [Vitamin D3 (25 25 mcg PO TID 11/16/21 11/16/21 History Mcg = 1000 Iu)] Esomeprazole Magnesium [NexIUM 20 mg PO DAILY 11/16/21 11/16/21 History 24Hr] Pregabalin [Lyrica] 150 mg PO TID 11/16/21 11/16/21 History Aspirin 325 mg PO BID #60 tab 11/17/21 Rx HYDROcodone/APAP 5-325MG [[place] 5] 1 each PO Q6HR PRN #28 tab 11/17/21 Rx Ondansetron [Zofran] 4 mg PO Q6HR PRN #30 tab 11/17/21 Rx Sennosides-Docusate Sodium 1 tab PO BID PRN #60 tablet 11/17/21 Rx [Senokot-S] Allergies Allergy/AdvReac Type Severity Reaction Status Date / Time amoxicillin [From Augmentin] Allergy Nausea Verified 11/17/21 17:27 aripiprazole [From Abilify] Allergy Unknown Verified 11/17/21 17:27 clavulanic acid Allergy Nausea Verified 11/17/21 17:27 [From Augmentin] levofloxacin [From Levaquin] Allergy Unknown Verified 11/17/21 17:27 methotrexate Allergy ringing in Verified 11/17/21 17:27 ears Sulfa (Sulfonamide Allergy Rash/Hives, Verified 11/17/21 17:27 Antibiotics) itchy Physical Exam Vitals: Vital Signs Temp Pulse Resp BP Pulse Ox 01/02/22 07:30 75 16 127/69 99 01/02/22 04:29 98 F 63 18 132/62 98 Intake and Output 01/01/22 01/02/22 01/02/22 22:59 06:59 14:59 Other: Weight 81.647 kg
[2022-01-02] MEDS: LEFLUNOMIDE 20 MG TAB PO SCH (09:51)
[2022-01-02] MEDS: lisinopriL 5 MG TAB PO SCH (09:51)
[2022-01-02] MEDS ORDERED: HYDROcodone/APAP 5-325MG 1 EACH TAB PO PRN (10:38)
--- NOTE | 2022-01-02 10:38 | P.HPOR ---
History of Present Illness H&P Date: 01/02/22 This patient is a 66- year old female who presented to an outside hospital yesterday via EMS after a fall at home. Patient states she was standing at the stove and turned quickly, and felt a pop in her hip. EMS was called and she was transported to an ED in [place]. X-rays in the emergency department revealed a dislocated right hip prosthesis. Attempts were made at reduction which were unsuccessful. Patient was transferred to [facility] for further management. Patient was admitted under the care of Dr. Oliveira with a consult placed to internal medicine. Patient has a history of right hip dislocation about 6 weeks ago that required an open reduction by Dr. Oliveira in the operating room. Patient is status-post direct anterior right total hip arthroplasty by Dr. Oliveira in November 2019. Patient is examined bedside in the emergency department this morning. Patient states she recently saw Dr. Oliveira in the office about a week ago. She states her pain is well controlled at this time. She did not hit her head when she fell. She denies numbness or tingling of the right lower extremity. No additional complaints. Vital signs stable. Past Medical History Past Medical History: Fibromyalgia, GERD/Reflux, Osteoarthritis (OA), Rheumatoid Arthritis (RA), Sleep Apnea/CPAP/BIPAP Additional Past Medical History / Comment(s): seasonal allergies, has cpap,lymphdema rt arm History of Any Multi-Drug Resistant Organisms: None Reported Past Surgical History: Cholecystectomy, Hysterectomy, Joint Replacement, Orthopedic Surgery, Tonsillectomy Additional Past Surgical History / Comment(s): 2 large lipomas removed rt axillae, 3 total knee lt x1,rt knee x2 replacement,lipoma removed from back,ermias carpal tunnel,tendon release middle finger and thumbs ermias., ermias thumb joints Past Anesthesia/Blood Transfusion Reactions: No Reported Reaction Past Psychological History: Depression Smoking Status: Former smoker Past Alcohol Use History: Rare Past Drug Use History: None Reported - Past Family History Sister(s) Family Medical History: Cancer Additional Family Medical History / Comment(s): skin cancer Brother(s) Family Medical History: Cancer Additional Family Medical History / Comment(s): skin cancer Father Family Medical History: Myocardial Infarction ([place]) Additional Family Medical History / Comment(s): Father of a [place] at the age of 65yrs. Mother Family Medical History: No Reported History Additional Family Medical History / Comment(s): Mother was healthy and lived to be 96yrs old. Medications and Allergies Home Medications Medication Instructions Recorded Confirmed Type Albuterol Inhaler [Ventolin Hfa 2 puff INHALATION RT-Q6H PRN 11/27/19 11/16/21 History Inhaler] Fluticasone Nasal [place] [Flonase 1 spray EA NOSTRIL DAILY PRN 11/27/19 11/16/21 History Nasal [place]] Leflunomide [Arava] 20 mg PO Q48H 11/27/19 11/16/21 History Sertraline HCl [Zoloft] 100 mg PO DAILY 11/27/19 11/16/21 History Cholecalciferol [Vitamin D3 (25 25 mcg PO TID 11/16/21 11/16/21 History Mcg = 1000 Iu)] Esomeprazole Magnesium [NexIUM 20 mg PO DAILY 11/16/21 11/16/21 History 24Hr] Pregabalin [Lyrica] 150 mg PO TID 11/16/21 11/16/21 History Aspirin 325 mg PO BID #60 tab 11/17/21 Rx HYDROcodone/APAP 5-325MG [[place] 5] 1 each PO Q6HR PRN #28 tab 11/17/21 Rx Ondansetron [Zofran] 4 mg PO Q6HR PRN #30 tab 11/17/21 Rx Sennosides-Docusate Sodium 1 tab PO BID PRN #60 tablet 11/17/21 Rx [Senokot-S] Allergies Allergy/AdvReac Type Severity Reaction Status Date / Time amoxicillin [From Augmentin] Allergy Nausea Verified 11/17/21 17:27 aripiprazole [From Abilify] Allergy Unknown Verified 11/17/21 17:27 clavulanic acid Allergy Nausea Verified 11/17/21 17:27 [From Augmentin] levofloxacin [From Levaquin] Allergy Unknown Verified 11/17/21 17:27 methotrexate Allergy ringing in Verified 11/17/21 17:27 ears Sulfa (Sulfonamide Allergy Rash/Hives, Verified 11/17/21 17:27 Antibiotics) itchy Physical Examination On examination, patient is sitting up in the bed in no apparent distress. She is alert and orientated x3. Her head appears normocephalic and atraumatic. Her breathing appears non-labored. On inspection of her bilateral upper extremities, there are no obvious deformities or signs of trauma. On inspection of her left lower extremity, no obvious deformities or signs of trauma. On inspection of her right hip, there is a healing incision at the anterior hip. No drainage, no erythema. The right lower extremity is shortened. Motor and sensory function intact RLE. Right dorsalis pedis pulse easily palpable. Calf nontender. Results Right hip and pelvis x-ray 01/01/22: Dislocated right hip prosthesis Assessment and Plan Assessment: Recurrent right hip dislocation Status-post direct anterior right total hip arthroplasty November [address] Oliveira Plan: - The clinical and imaging findings were discussed with the patient. The patient was discussed with Dr. Oliveira. Revision right total hip arthroplasty is recommended for for recurrent right hip dislocation. Surgery will be planned for tomorrow, pending medical clearance and consent. - Bed rest. - Pain management as needed. - Internal medicine consulted for pre-operative medical evaluation. - NPO diet at midnight.
[2022-01-02 12:32] LABS: Basophils % (A) 1 %; Eosinophils # (A) 0.2 k/uL (0-0.7); Eosinophils % (A) 4 %; HCT 40.8 % (34.0-46.0); HGB 12.7 gm/dL (11.4-16.0); Hypochromasia Slight; Lymphocytes # (A) 1.4 k/uL (1.0-4.8); Lymphocytes % (A) 26 %; MCH 28.3 pg (25.0-35.0); MCV 91.1 fL (80.0-100.0); Mean Platelet Volume 7.9; Monocytes # (A) 0.4 k/uL (0-1.0); Monocytes % (A) 7 %; Neutrophils # (A) 3.2 k/uL (1.3-7.7); Neutrophils % (A) 60 %; Platelet Count 196 k/uL (150-450); RBC 4.48 m/uL (3.80-5.40); RDW 13.8 % (11.5-15.5); WBC 5.2 k/uL (3.8-10.6)
[2022-01-02 12:51] LABS: Prothrombin Time 10.6 sec (9.0-12.0)
[2022-01-02 12:56] LABS: Albumin 3.5 g/dL (3.5-5.0); Potassium 4.1 mmol/L (3.5-5.1); Total Bilirubin 0.3 mg/dL (0.2-1.3)
[2022-01-02 12:58] LABS: Calcium 8.7 mg/dL (8.4-10.2)
[2022-01-02] MEDS: HEPARIN SODIUM,PORCINE/PF 5,000 UNIT/0.5 ML SYRINGE SQ SCH ×2 (17:13→23:07)
[2022-01-02] MEDS: CHOLECALCIFEROL 25 MCG (1000 IU) TABLET PO SCH ×3 (17:13→21:55)
[2022-01-02] MEDS: PREGABALIN 75 MG CAP PO SCH ×3 (17:13→21:55)
[2022-01-03] MEDS: MORPHINE SULFATE 4 MG/ML SYRINGE IV PRN ×3 (03:28→19:12)
[2022-01-03] MEDS: SODIUM CHLORIDE 0.9% 1,000 ML IV SCH (03:29)
[2022-01-03] MEDS: HEPARIN SODIUM,PORCINE/PF 5,000 UNIT/0.5 ML SYRINGE SQ SCH ×3 (09:49→23:57)
[2022-01-03] MEDS: lisinopriL 5 MG TAB PO SCH (09:50)
[2022-01-03] MEDS: SERTRALINE 100 MG TAB PO SCH (09:50)
[2022-01-03] MEDS: PREGABALIN 75 MG CAP PO SCH ×3 (09:50→21:43)
[2022-01-03] MEDS: PANTOPRAZOLE 40 MG TABLET PO SCH (09:57)
[2022-01-03] MEDS: CHOLECALCIFEROL 25 MCG (1000 IU) TABLET PO SCH ×3 (09:57→21:43)
--- NOTE | 2022-01-03 11:03 | P.PN ---
Subjective Progress Note Date: 01/03/22 Patient was seen and examined. No acute events overnight. Patient reports well-controlled pain in her right hip. She has no other complaints. General: non toxic, no distress, appears at stated age Derm: warm, dry Head: atraumatic, normocephalic, symmetric Eyes: EOMI, no lid lag, anicteric sclera Mouth: no lip lesion, mucus membranes moist Cardiovascular: S1S2 reg, no murmur, positive DP pulse bilateral, Lungs: CTA bilateral, no rhonchi, no rales , no accessory muscle use Ext: no gross muscle atrophy, no edema, restricted range of motion of the right hip due to pain Neuro: no focal neuro deficits Psych: Alert, oriented, appropriate affect #Hypertension #Depression #Rheumatoid arthritis #Neuropathic pain #GERD #Obstructive sleep apnea #Right hip dislocation Patient restarted on lisinopril 5 mg by mouth daily. Monitor vitals, adjust medication if necessary. Restart sertraline. Restart leflunomide. Restart Lyrica. Restart Nexium. CPAP at bedtime. Orthopedic surgery has been consulted for management of right hip dislocation. Pain management deferred to orthopedic surgery. PT and OT will be consulted to work with this patient. Patient be placed on fall precautions. Plans for OR tomorrow. Patient is medically cleared for surgery. DVT prophylaxis: Heparin Discussed with: Patient Anticipated discharge: 2-3 days Objective - Vital Signs Vital signs: Vital Signs Temp 98.4 F 01/03/22 02:00 Pulse 74 01/03/22 02:00 Resp 20 01/03/22 02:00 BP 121/55 01/03/22 02:00 Pulse Ox 94 L 01/03/22 02:00 FiO2 Intake & Output 01/02/22 01/03/22 01/03/22 18:59 06:59 18:59 Intake Total 100 Output Total 1350 Balance -1250 Weight 81.647 kg Intake: Oral 100 Output: Urine 1350 Other: Voiding Method Indwelling Catheter - Labs CBC & Chem 7: 01/02/22 12:20 01/02/22 12:20 Labs: Abnormal Lab Results - Last 24 Hours (Table) 01/02/22 Range/Units 12:20 BUN 18 H (7-17) mg/dL Glucose 128 H (74-99) mg/dL Total Protein 6.0 L (6.3-8.2) g/dL
--- NOTE | 2022-01-03 12:10 | P.PN ---
Subjective Progress Note Date: 01/03/22 This is a 66-year-old female is admitted for recurrent dislocation of her right total hip. Patient is seen and evaluated at bedside today with Dr. Fred Oliveira. Patient states that her pain is well controlled and she denies any new complaints today. Objective - Vital Signs Vital signs: Vital Signs Temp 98.7 F 01/03/22 11:06 Pulse 69 01/03/22 11:06 Resp 18 01/03/22 11:06 BP 102/63 01/03/22 11:06 Pulse Ox 96 01/03/22 11:06 FiO2 Intake & Output 01/02/22 01/03/22 01/03/22 18:59 06:59 18:59 Intake Total 100 Output Total 1350 Balance -1250 Weight 81.647 kg Intake: Oral 100 Output: Urine 1350 Other: Voiding Method Indwelling Catheter - Exam On exam patient is resting comfortably in bed in no acute distress. Patient is alert and oriented 3. There is mild swelling about the right hip. Calf is soft and nontender to palpation. Sensation intact. Neurovascular status and circulatory status are intact. - Labs CBC & Chem 7: 01/02/22 12:20 01/02/22 12:20 Labs: Abnormal Lab Results - Last 24 Hours (Table) 01/02/22 Range/Units 12:20 BUN 18 H (7-17) mg/dL Glucose 128 H (74-99) mg/dL Total Protein 6.0 L (6.3-8.2) g/dL Assessment and Plan (1) Recurrent dislocation, right hip Current Visit: Yes Status: Acute Code(s): M24.451 - RECURRENT DISLOCATION, RIGHT HIP SNOMED Code(s): 513030393 (2) History of total right hip arthroplasty Current Visit: Yes Status: Acute Code(s): Z96.641 - PRESENCE OF RIGHT ART IFICIAL HIP JOINT SNOMED Code(s): 724823445105 Plan: 1. Nothing by mouth after midnight. 2. Planning for revision right total hip arthroplasty on 01/04/2022 pending medical clearance and patient consent.
[2022-01-04] MEDS: MORPHINE SULFATE 4 MG/ML SYRINGE IV PRN ×3 (04:59→19:50)
[2022-01-04] MEDS: SODIUM CHLORIDE 0.9% 1,000 ML IV SCH ×2 (06:03→21:30)
[2022-01-04] MEDS: PREGABALIN 75 MG CAP PO SCH ×3 (08:48→21:29)
[2022-01-04] MEDS: SERTRALINE 100 MG TAB PO SCH (08:49)
[2022-01-04] MEDS: lisinopriL 5 MG TAB PO SCH (08:49)
[2022-01-04] MEDS: LEFLUNOMIDE 20 MG TAB PO SCH (08:49)
[2022-01-04] MEDS: PANTOPRAZOLE 40 MG TABLET PO SCH (08:49)
[2022-01-04] MEDS: HEPARIN SODIUM,PORCINE/PF 5,000 UNIT/0.5 ML SYRINGE SQ SCH ×3 (08:49→21:20)
[2022-01-04] MEDS: CHOLECALCIFEROL 25 MCG (1000 IU) TABLET PO SCH ×4 (08:49→21:29)
[2022-01-04] MEDS ORDERED: LACTATED RINGERS 1,000 ML IV ONE ×2 (14:10→16:48)
--- NOTE | 2022-01-04 14:44 | P.PN ---
Subjective Progress Note Date: 01/04/22 Patient denies any acute complaints this morning. No acute issues overnight. She stated that she is scheduled for her surgery today. Objective - Vital Signs Vital signs: Vital Signs Temp 98.0 F 01/04/22 14:04 Pulse 80 01/04/22 14:04 Resp 16 01/04/22 14:04 BP 142/65 01/04/22 14:04 Pulse Ox 91 L 01/04/22 14:04 FiO2 Intake & Output 01/03/22 01/04/22 01/04/22 18:59 06:59 18:59 Output Total 1000 1100 700 Balance -1000 -1100 -700 Output: Urine 1000 1100 700 Other: Voiding Method Indwelling Catheter Indwelling Catheter Indwelling Catheter - Exam General examination - Alert and Oriented 3 in NAD Heart - + S1S2 no murmurs Lungs - Clear to auscultation Abdomen soft NT ND +ve BS, obese Extremities - No edema, restricted range of motion of the right lower extremity CLAIMS ADJUSTER CROP - Moving all 4 extremities spontaneously Psych - Calm and cooperative - Labs CBC & Chem 7: 01/02/22 12:20 01/02/22 12:20 Assessment and Plan Assessment: Right hip dislocation Patient scheduled for hip repair today Hypertension Resume lisinopril Depression Resume sertraline Rheumatoid arthritis Leflunomide Neuropathic pain lyrica GERD Resume Nexium Obstructive sleep apnea CPAP at bedtime DVT prophylaxis: Heparin
[2022-01-04] MEDS ORDERED: MIDAZOLAM 2 MG/2 ML VIAL IVP ONE (15:05)
[2022-01-04] MEDS ORDERED: ONDANSETRON 4 MG/2 ML VIAL IVP PRN (15:08)
[2022-01-04] MEDS ORDERED: HYDROmorphone 0.5 MG/0.5 ML SYRINGE IVP PRN ×3 (15:08)
[2022-01-04] MEDS ORDERED: NALOXONE 0.4 MG/ML 1 ML VIAL IV PRN (15:08)
[2022-01-04] MEDS ORDERED: MAGNESIUM HYDROXIDE 2,400 MG/10 ML CUP PO PRN (15:08)
[2022-01-04] MEDS ORDERED: traMADol 50 MG TAB PO PRN ×2 (15:13)
[2022-01-04] MEDS ORDERED: SUCCINYLCHOLINE CHLORIDE 200 MG/10 ML VIAL IV ONE (15:22)
[2022-01-04] MEDS ORDERED: fentaNYL (PF) 50 MCG/ML 2 ML AMP ONE (15:22)
[2022-01-04] MEDS ORDERED: ePHEDrine 50 MG/ML 1 ML VIAL ONE (15:22)
[2022-01-04] MEDS ORDERED: PROPOFOL 10 MG/ML 20 ML VIAL IV ONE (15:22)
[2022-01-04] MEDS ORDERED: NEOSTIGMINE 1 MG/ML 10 ML VIAL ONE (15:22)
[2022-01-04] MEDS ORDERED: ROCURONIUM 10 MG/ML (5 ML VIAL) IV ONE (15:22)
[2022-01-04] MEDS ORDERED: GLYCOPYRROLATE 0.2 MG/ML 2 ML VIAL ONE (15:22)
[2022-01-04] MEDS ORDERED: PHENYLEPHRINE-0.9% NACL SYG 1,000 MCG/10 ML SYRINGE ONE (15:22)
[2022-01-04] MEDS ORDERED: TRANEXAMIC ACID IN NACL,ISO-OS 1,000 MG in SALINE 1 100ML.BAG IVPB ONE (15:47)
[2022-01-04] MEDS ORDERED: ceFAZolin 1,000 MG in SODIUM CHLORIDE 0.9% 1,000 ML IRRIGATION ONE (15:55)
[2022-01-04] MEDS ORDERED: TOBRAMYCIN SULFATE 1.2 GM VIAL MISCELLANE ONE ×2 (16:25)
[2022-01-04] MEDS ORDERED: VANCOMYCIN 1,000 MG VIAL MISCELLANE ONE (16:25)
--- NOTE | 2022-01-04 16:48 | P.OP ---
Date of Procedure: 01/04/22 Preoperative Diagnosis: Recurrent dislocation right total hip arthroplasty Postoperative Diagnosis: Recurrent dislocation right total hip arthroplasty Procedure(s) Performed: 1. Revision right total hip arthroplasty with conversion to a dual mobility liner for stability 2. Stimulan antibiotic beads 3. Application of 13 mm Prevena wound management system due to high philippe of post operative wound complications. Implants: Ang [employer] Nephew OR30, 42 mm ID, 54 mm OD, Oxinium dual mobility liner Ang [employer]hew OR30, 28 mm ID, 42 mm OD, XLPE Dual mobility insert Ang [employer]hew Oxinium femoral head 28 m, +8 The articulation is Oxinium on polyethylene Stimulan antibiotic beads . Anesthesia: GETA Surgeon: Fred Oliveira Boiler Installer #1: Liz Gaitan Estimated Blood Loss (ml): 100 Pathology: none sent Condition: stable Disposition: PACU Indications for Procedure: This is a 66-year-old female that had a right total arthroplasty performed approximately 2 years ago. Approximately 6-8 weeks ago she experienced a dislocation while at home. She had multiple attempts at closed reduction, until finally an open reduction was performed. Her hip was found to be stable at that time. She was doing well postoperatively and then experienced a second dislocation again while at home. After discussing the surgical nonsurgical treatment options with her and her at length, I recommended a revision of a right total hip arthroplasty with conversion to a dual mobility liner for stability. I have explained to them how the dual mobility will increase stability as well as other options such as constrained liner. I also discussed that we will place antibiotic beads secondary to multiple procedures in order to lower the risk of infection. I will also place a wound VAC dressing on her hip incision, again in order to lower the risk of infection and improve wound healing from her multiple surgeries. They're agreeable to this informed consent was obtained. Operative Findings: The operative findings are consistent with a dislocation of a right total hip arthroplasty. After conversion to a dual mobility construct, the hip was found to be stable throughout all range of motion. Description of Procedure: Patient was seen and evaluated in the preoperative area and the consent was reviewed. The operative site was marked with a skin marker. The patient was then brought to the operating room and given preoperative antibiotics intravenously. 1 g of Tranexamic acid was also given intravenously. A general anesthetic was administered by the anesthesia department. The patient was then placed on the [place] table with the bony prominences well-padded. The hip area was then prepped with a ChloraPrep solution and draped in the usual sterile fashion. A universal timeout was then performed, which confirmed the patient's name, surgical site, ALLERGIES, and procedure being performed on the consent. Next the incision site was located at 1 cm distal and 2 cm lateral to the anterior superior iliac spine. The skin and subcutaneous tissues were sharply incised with the prior incision being excised.. Incision was carefully dissected down to the fascia overlying the tensor fascia sue muscle. This fascia was then incised in line with the incision. Care was taken to stay laterally in order to avoid injuring the lateral femoral cutaneous nerve. Next, using blunt finger dissection, the tensor fascia sue muscle was dissected off its investing fascia. The muscle was then carefully retracted laterally with a cobra retractor over the lateral neck of the femur. Next, the circumflex vessels were identified and cauterized using the AquaMantis device. The proximal femurs readily visualized and exposed. Using an osteotome and a mallet, the femoral head was removed from the trunnion of the femoral stem. The femoral stem was inspected and found to be well fixed. Attention was then turned to the acetabulum. The acetabulum was exposed. Using the extraction device, acetabular liner was then removed from the acetabular shell. Acetabular shell was inspected and found to be in good anatomic position and well fixed. Shell was then irrigated, and the dual mobility liner was impacted into the acetabulum with component locking being confirmed. Next, the proximal femurs reexposed and a dual mobility trial was then placed. The hip was reduced. Fluoroscopic x-rays confirmed leg lengths and stability of the hip. The hip was taken through a range of motion with the trial placed and found to be stable. Hip was then redislocated and the trial heads removed. Hip was copiously irrigated with antibiotic solution and the final dual volarly head and liner were impacted on the trunnion. Hip was again reduced and again s tability was inspected by taking the hip through range of motion and it was found to be stable. Final fluoroscopic x-rays confirmed equal leg lengths and offset as well as placement of the prosthesis. The hip was then copiously irrigated with antibiotic solution with pulsatile lavage. The hip was then irrigated with Irrisept solution. On the back table the Stimulan antibiotic beads were prepared. This was done by mixing 1 g of vancomycin and 1.2 g of tobramycin with the solution. This was then mixed, and made into small antibiotic beads which were allowed to harden. After they had hardened antibiotic beads were then placed into the incision around the hip and soft tissues. The fascia was then closed with 2-0 strata fix suture. The subcutaneous tissue was closed with 3-0 Vicryl. The subcuticular tissue was closed with 3-0 strata fix suture. A Prevena incision management dressing was applied to the wound. The decision to use this device because of multiple recent surgeries and the high risk of wound complications because of the site of incision and recent surgeries.. The patient was then transferred to the recovery room in stable condition. The specimen preparation assistant AYE Haines was required due to the complexity of surgery, and the need for skilled surgical scrub technologist for positioning, draping, exposure, retraction, and closure of the wound.
--- NOTE | 2022-01-04 16:49 | XR ---
EXAMINATION TYPE: XR Hip Limited RT DATE OF EXAM: 01/04/2022 4:46 PM INDICATION: Patient age:Female; 66 years old; Reason for study: RIGHT ANTERIOR HIP REPLACEMENT; PH[facility]. COMPARISON: None. Intraoperative/procedural fluoroscopic services were provided. Total fluoroscopy time is 20 2 seconds with a total of 6 submitted images to PACS. Please see the operative/procedural note for fu rther details.
--- NOTE | 2022-01-04 16:54 | FL ---
Intraoperative/procedural fluoroscopic services were provided. Total fluoroscopy time is 28 seconds w ith a total of 2 submitted images to PACS within x-ray hip Limited evaluation.. Please see the operat mary/procedural note for further details.
[2022-01-04] MEDS ORDERED: HYDROmorphone 0.5 MG/0.5 ML SYRINGE IVP ONE ×3 (17:17→17:51)
--- NOTE | 2022-01-04 17:34 | XR ---
EXAMINATION TYPE: XR Hip Limited RT DATE OF EXAM: 01/04/2022 5:23 PM INDICATION: Patient age:Female; 66 years old; Reason for study: Status post hip surgery, assess surgical alignment; . COMPARISON: Multiple priors most recent pelvis 1921. TECHNIQUE: The right hip was examined in the frontal projection. FINDINGS: Post right hip arthroplasty changes. New tiny densities are seen within the joint capsule. No evidence of acute fracture. Hardware is in appropriate anatomic alignment. IMPRESSION: Total right hip arthroplasty status multiple densities within the joint capsule which may represent a ntibiotic infused beads. Alignment is appropriate.
[2022-01-04] MEDS: ASPIRIN 325 MG TAB PO SCH (21:29)
[2022-01-05] MEDS: HEPARIN SODIUM,PORCINE/PF 5,000 UNIT/0.5 ML SYRINGE SQ SCH ×3 (00:06→17:44)
[2022-01-05] MEDS: MORPHINE SULFATE 4 MG/ML SYRINGE IV PRN ×3 (04:14→14:42)
[2022-01-05] MEDS: SODIUM CHLORIDE 0.9% 1,000 ML IV SCH ×3 (04:41→13:23)
--- NOTE | 2022-01-05 08:08 | P.PN ---
Subjective Progress Note Date: 01/05/22 Principal diagnosis: Recurrent dislocation right hip. Status post revision total right hip arthroplasty. This is a 66-year-old female that had a right total arthroplasty performed approximately 2 years ago. Approximately 6-8 weeks ago she experienced a dislocation while at home. She had multiple attempts at closed reduction, until finally an open reduction was performed. Her hip was found to be stable at that time. She was doing well postoperatively and then experienced a second dislocation again while at home. After discussing the surgical nonsurgical treatment options with her and her at length, It is recommended she undergo a a revision of a right total hip arthroplasty with conversion to a dual mobility liner for stability. A wound VAC was also placed to assist with drainage and wound closure. Today is postoperative day #1 status post revision total right hip arthroplasty with application of Prevena wound VAC. There are no new complaints or concerns today. Vital signs are stable. Objective - Vital Signs Vital signs: Vital Signs Temp 98.9 F 01/05/22 07:46 Pulse 90 01/05/22 07:46 Resp 16 01/05/22 07:46 BP 108/67 01/05/22 07:46 Pulse Ox 93 L 01/05/22 07:46 FiO2 Intake & Output 01/04/22 01/05/22 01/05/22 18:59 06:59 18:59 Intake Total 1101 500 Output Total 1050 800 Balance 51 -300 Weight 81.647 kg 81.647 kg Intake: IV 1101 Oral 500 Output: Urine 950 800 Estimated Blood Loss 100 Other: Voiding Method Indwelling Catheter Indwelling Catheter - Exam This is a pleasant 66-year-old female in no acute distress. She is alert and oriented 3. Exam of the right hip reveals that the wound VAC is in place and working properly. There is minimal erythema to the surrounding area. She has full foot and ankle motion without difficulty or pain. Neurovascular status to the lower extremity is intact. - Labs CBC & Chem 7: 01/02/22 12:20 01/02/22 12:20 Assessment and Plan (1) Status post revision of total hip Current Visit: Yes Status: Acute Code(s): Z96.649 - PRESENCE OF UNSPECIFIED ARTIFICIAL HIP JOINT SNOMED Code(s): 283484107 (2) Recurrent dislocation, right hip Current Visit: Yes Status: Acute Code(s): M24.451 - RECURRENT DISLOCATION, RIGHT HIP SNOMED Code(s): 881874467 Plan: The clinical findings are discussed with the patient. We will begin physical therapy today. We are planning discharge to home versus rehab tomorrow or Monday.
[2022-01-05 09:08] LABS: Basophils # (A) 0.03 X 10*3/uL (0.00-0.10); Basophils % (A) 0.4 %; Eosinophils # (A) 0.12 X 10*3/uL (0.04-0.35); Eosinophils % (A) 1.6 %; HCT 36.6 % (37.2-46.3); HGB 11.6 g/dL (12.0-15.0); Immature Grans, Automated 0.3 %; Lymphocytes # (A) 1.21 X 10*3/uL (0.90-5.00); Lymphocytes % (A) 16.4 %; MCH 28.7 pg (27.0-32.0); MCHC 31.7 g/dL (32.0-37.0); MCV 90.6 fL (80.0-97.0); Mean Platelet Volume 11.5 fL (9.5-12.2); Monocytes # (A) 0.87 X 10*3/uL (0.20-1.00); Monocytes % (A) 11.8 %; NRBC Per 100 WBC 0 /100 WBCS (0.0-0.0); Neutrophils # (A) 5.13 X 10*3/uL (1.80-7.70); Neutrophils % (A) 69.5 %; Platelet Count 193 X 10*3/uL (140-440); RBC 4.04 X 10*6/uL (4.10-5.20); RDW 13.5 % (11.5-14.5); WBC 7.38 X 10*3/uL (4.50-10.00)
[2022-01-05] MEDS: PREGABALIN 75 MG CAP PO SCH ×3 (10:00→21:17)
[2022-01-05] MEDS: CHOLECALCIFEROL 25 MCG (1000 IU) TABLET PO SCH ×3 (10:01→21:17)
[2022-01-05] MEDS: ASPIRIN 325 MG TAB PO SCH ×2 (10:01→21:17)
[2022-01-05] MEDS: SERTRALINE 100 MG TAB PO SCH (10:01)
[2022-01-05] MEDS: lisinopriL 5 MG TAB PO SCH (10:02)
[2022-01-05] MEDS: PANTOPRAZOLE 40 MG TABLET PO SCH (10:02)
--- NOTE | 2022-01-05 13:46 | P.PN ---
Subjective Progress Note Date: 01/05/22 Patient denying any acute complaints. She stated her pain is controlled with the pain meds. I encouraged the patient used incentive spirometer.. Objective - Vital Signs Vital signs: Vital Signs Temp 98.8 F 01/05/22 12:35 Pulse 89 01/05/22 12:35 Resp 17 01/05/22 12:35 BP 117/70 01/05/22 12:35 Pulse Ox 95 01/05/22 12:35 FiO2 Intake & Output 01/04/22 01/05/22 01/05/22 18:59 06:59 18:59 Intake Total 1101 500 Output Total 1050 800 200 Balance 51 -300 -200 Weight 81.647 kg 81.647 kg Intake: IV 1101 Oral 500 Output: Urine 950 800 200 Uretheral (Arnett) 200 Estimated Blood Loss 100 Other: Voiding Method Indwelling Catheter Indwelling Catheter Indwelling Catheter - Exam General examination - Alert and Oriented 3 in NAD Heart - + S1S2 no murmurs Lungs - Clear to auscultation Abdomen soft NT ND +ve BS, obese Extremities - No edema, right hip wound VAC 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 - Moving all 4 extremities spontaneously Psych - Calm and cooperative - Labs CBC & Chem 7: 01/05/22 04:44 01/02/22 12:20 Labs: Abnormal Lab Results - Last 24 Hours (Table) 01/05/22 Range/Units 04:44 RBC 4.04 L (4.10-5.20) X 10*6/uL Hgb 11.6 L (12.0-15.0) g/dL Hct 36.6 L (37.2-46.3) % MCHC 31.7 L (32.0-37.0) g/dL Assessment and Plan Assessment: Right hip dislocation Status post right hip repair Hypertension Resume lisinopril Depression Resume sertraline Rheumatoid arthritis Hold Leflunomide similar patient can heal from her surgery Neuropathic pain lyrica GERD Resume Nexium Obstructive sleep apnea CPAP at bedtime DVT prophylaxis: Heparin
[2022-01-05] MEDS: ACETAMINOPHEN TAB 325 MG TAB PO PRN (17:51)
[2022-01-06] MEDS: HEPARIN SODIUM,PORCINE/PF 5,000 UNIT/0.5 ML SYRINGE SQ SCH ×3 (00:05→16:45)
[2022-01-06] MEDS: SODIUM CHLORIDE 0.9% 1,000 ML IV SCH ×2 (04:52→16:46)
[2022-01-06] MEDS: PANTOPRAZOLE 40 MG TABLET PO SCH (04:52)
[2022-01-06] MEDS: ASPIRIN 325 MG TAB PO SCH ×2 (08:15→20:36)
[2022-01-06] MEDS: CHOLECALCIFEROL 25 MCG (1000 IU) TABLET PO SCH ×3 (08:15→20:36)
[2022-01-06] MEDS: SERTRALINE 100 MG TAB PO SCH (08:15)
[2022-01-06] MEDS: PREGABALIN 75 MG CAP PO SCH ×3 (08:15→20:36)
[2022-01-06] MEDS: lisinopriL 5 MG TAB PO SCH (08:15)
--- NOTE | 2022-01-06 10:42 | XR ---
EXAMINATION TYPE: XR chest 1V portable DATE OF EXAM: 01/06/2022 10:16 AM COMPARISON: None TECHNIQUE: XR chest 1V portable Portable AP radiograph of the chest. CLINICAL INDICATION:Female, 66 years old with history of fever; FINDINGS: Lungs/Pleura: There is no evidence of pleural effusion, focal consolidation, or pneumothorax. Pulmonary vascularity: Unremarkable. Heart/mediastinum: Cardiomediastinal silhouette is unremarkable. Musculoskeletal: No acute osseous pathology. IMPRESSION: No acute cardiopulmonary disease/process.
--- NOTE | 2022-01-06 13:45 | P.PN ---
Subjective Progress Note Date: 01/06/22 This is a 66-year-old female is status post revision right total hip arthroplasty with conversion to a dual mobility liner. This is postoperative day #2 and patient is seen and evaluated at bedside today. Patient states that her pain is well controlled and she denies any new complaints today. Patient states that she has been up and walking with physical therapy today. Objective - Vital Signs Vital signs: Vital Signs Temp 97.6 F 01/06/22 12:48 Pulse 92 01/06/22 12:48 Resp 19 01/06/22 12:48 BP 106/65 01/06/22 12:48 Pulse Ox 93 L 01/06/22 12:48 FiO2 Intake & Output 01/05/22 01/06/22 01/06/22 18:59 06:59 18:59 Intake Total 600 590 Output Total 200 Balance 400 590 Intake: Oral 600 590 Output: Urine 200 Uretheral (Arnett) 200 Other: Voiding Method Indwelling Catheter Indwelling Catheter Indwelling Catheter # Voids 2 10 - Exam On exam patient is lying comfortably in bed in no acute distress. Patient is alert and oriented x3. Prevena wound VAC is clean, dry and intact. Calf is soft and nontender to palpation. Sensation intact. Patient has full range of motion of the foot and ankle. Neurovascular status and circulatory status are intact. - Labs CBC & Chem 7: 01/05/22 04:44 01/02/22 12:20 Assessment and Plan (1) Recurrent dislocation, right hip Current Visit: Yes Status: Acute Code(s): M24.451 - RECURRENT DISLOCATION, RIGHT HIP SNOMED Code(s): 529983566 (2) History of total right hip arthroplasty Current Visit: Yes Status: Acute Code(s): Z96.641 - PRESENCE OF RIGHT ARTIFICIAL HIP JOINT SNOMED Code(s): 128424750331 Plan: 1. Weightbearing as tolerated with a walker. 2. Aspirin for DVT prophylaxis. 3. Continue physical therapy. 4. Appreciate input from internal medicine. 5. Wound vac to stay in place for 7 days. 6. Anticipate discharge to ECF in the next 24-48 hours.
--- NOTE | 2022-01-06 14:00 | P.PN ---
Subjective Progress Note Date: 01/06/22 Patient had a one-time isolated temperature of 100.3 last night. Patient states that she does have a cough which is not unusual for her. She denies any dysuria. Patient had a chest x-ray that was negative for pneumonia. UA is pending. Patient does report some pus draining from the site where she had her IV line. Patient is worried that this may become a worsening infection. Objective - Vital Signs Vital signs: Vital Signs Temp 97.6 F 01/06/22 12:48 Pulse 92 01/06/22 12:48 Resp 19 01/06/22 12:48 BP 106/65 01/06/22 12:48 Pulse Ox 93 L 01/06/22 12:48 FiO2 Intake & Output 01/05/22 01/06/22 01/06/22 18:59 06:59 18:59 Intake Total 600 590 Output Total 200 Balance 400 590 Intake: Oral 600 590 Output: Urine 200 Uretheral (Arnett) 200 Other: Voiding Method Indwelling Catheter Indwelling Catheter Indwelling Catheter # Voids 2 10 - Exam General examination - Alert and Oriented 3 in NAD Heart - + S1S2 no murmurs Lungs - Clear to auscultation Abdomen soft NT ND +ve BS, obese Extremities - No edema, right hip wound VAC, in the left antecubital area there is a small abscess that is draining 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 Psych - Calm and cooperative - Labs CBC & Chem 7: 01/05/22 04:44 01/02/22 12:20 Assessment and Plan Assessment: Right hip dislocation Status post right hip repair Fever likely due to atelectasis Patient does have a small skin abscess at the site of her IV line that has been removed however this is not severe enough to cause a Patient's chest x-ray negative for pneumonia UA is pending Blood cultures obtained Patient does not meet sepsis criteria Small skin abscess at the site of the IV line IV line removal We'll start the patient and doxycycline Hypertension Resume lisinopril Depression Resume sertraline Rheumatoid arthritis Hold Leflunomide similar patient can heal from her surgery Neuropathic pain lyrica GERD Resume Nexium Obstructive sleep apnea CPAP at bedtime DVT prophylaxis: Heparin No fevers in the next 24 hours patient can be discharged to a penitentiary facility
[2022-01-06] MEDS: DOXYCYCLINE 100 MG CAP PO SCH ×2 (15:13→20:37)
[2022-01-06 15:50] LABS: Appearance,Urine Clear (Clear); Bilirubin,Urine Negative (Negative); Blood,Urine Negative (Negative); Color,Urine Yellow; Glucose,Urine (UA) Negative (Negative); Ketones,Urine Negative (Negative); Leukocyte Esterase,Urine Negative (Negative); Nitrite,Urine Negative (Negative); PH, Urine 5.5 (5.0-8.0); Protein,Urine Negative (Negative); Specific Gravity,Urine 1.015 (1.001-1.035); Urobilinogen,Urine <2.0 mg/dL (<2.0)
--- NOTE | 2022-01-07 01:45 | CT ---
EXAMINATION TYPE: CT facial bones wo con DATE OF EXAM: 01/07/2022 COMPARISON: None HISTORY: Fall pain to nose CT DLP: 513.30 mGycm Automated exposure control for dose reduction was used. Images obtained from the mandible to top of the frontal sinuses with no contrast. The maxilla is intact. Visualized mandible is intact. Temporomandibular joints are intact. There is e joaquin normal aeration of the paranasal sinuses. There is some mild mucosal thickening left anterior et hmoid sinus. Maxilla is intact and orbital margins are intact. No retro-orbital mass. Filters appears normal. Zygomatic arches appear normal. Maxillary spine is intact. Nasal bone appears intact. IMPRESSION: No fracture seen. Minimal left-sided anterior ethmoid sinusitis.
[2022-01-07] MEDS: HEPARIN SODIUM,PORCINE/PF 5,000 UNIT/0.5 ML SYRINGE SQ SCH ×2 (02:08→10:31)
[2022-01-07] MEDS: SODIUM CHLORIDE 0.9% 1,000 ML IV SCH ×2 (02:08→05:14)
--- NOTE | 2022-01-07 03:08 | P.EN ---
patient sustained an accidental fall on her face, due to slipping on wet floor (had urinary incontinence accident and wet the floor and her clothes prior to the fall). no loss of consciousness. neuro exam non focal , vitals stable, patient alert oriented X3 patient not on blood thinners , except for DVT ppx with sc heparin CT face showed no acute fractures fall precautions neuro checks Q4 hr
[2022-01-07] MEDS: ACETAMINOPHEN TAB 325 MG TAB PO PRN ×2 (08:00→12:33)
[2022-01-07 09:12] LABS: Basophils # (A) 0.05 X 10*3/uL (0.00-0.10); Basophils % (A) 0.7 %; Eosinophils # (A) 0.33 X 10*3/uL (0.04-0.35); Eosinophils % (A) 4.7 %; HCT 33.3 % (37.2-46.3); HGB 10.7 g/dL (12.0-15.0); Immature Grans, Automated 0.3 %; Lymphocytes # (A) 1.37 X 10*3/uL (0.90-5.00); Lymphocytes % (A) 19.6 %; MCH 28.3 pg (27.0-32.0); MCHC 32.1 g/dL (32.0-37.0); MCV 88.1 fL (80.0-97.0); Mean Platelet Volume 11.1 fL (9.5-12.2); Monocytes # (A) 0.81 X 10*3/uL (0.20-1.00); Monocytes % (A) 11.6 %; NRBC Per 100 WBC 0 /100 WBCS (0.0-0.0); Neutrophils # (A) 4.42 X 10*3/uL (1.80-7.70); Neutrophils % (A) 63.1 %; Platelet Count 183 X 10*3/uL (140-440); RBC 3.78 X 10*6/uL (4.10-5.20); RDW 13.3 % (11.5-14.5)
--- NOTE | 2022-01-07 09:49 | P.DS ---
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 The patient presented for evaluation in the emergency room on 01/02/2022. After discussion and consideration patient elects to proceed with revision right total arthroplasty with conversion to a dual mobility liner for stability. The patient is seen preoperatively by Dr. Oliveira and medically cleared for surgery by internal medicine. Patient is admitted to [facility] on 01/02/2022 and revision right total arthroplasty with conversion to a dual mobility liner for stability is performed on 01/04/2022. The procedure is performed without complication or sequelae. The patient is doing well postoperatively. Labs and vital signs are stable on day of discharge. The patient did have a fall while admitted. A CT of the facial bones was negative for fracture. On day of discharge patient's wound VAC is clean, dry and intact. There is no drainage noted at this time. There is minimal soft tissue swelling to the hip and thigh. Patient has full foot and ankle motion without difficulty or pain. Calf is soft and nontender to palpation. Neurovascular status to the right lower extremity is intact. Patient is discharged to [facility] in good condition. Please see med rec for accurate list of home medications. Patient Condition at Discharge: Fair Plan - Discharge Summary Discharge Rx Participant: No New Discharge Prescriptions: New Aspirin 325 mg PO BID #60 tab Sennosides [Senokot] 2 tab PO DAILY PRN #60 tablet PRN Reason: Constipation traMADol HCl [Ultram] 1 - 2 tab PO Q6H PRN #32 tab PRN Reason: Pain Ondansetron Odt [Zofran Odt] 1 tab PO Q8HR PRN #10 tab PRN Reason: Nausea No Action Fluticasone Nasal [place] [Flonase Nasal [place]] 1 spr EA NOSTRIL DAILY PRN PRN Reason: allergies Albuterol Inhaler [Ventolin Hfa Inhaler] 2 puff INHALATION RT-Q6H PRN PRN Reason: Shortness Of Breath Leflunomide [Arava] 20 mg PO Q48H Sertraline HCl [Zoloft] 100 mg PO DAILY Pregabalin [Lyrica] 150 mg PO TID Cholecalciferol [Vitamin D3 (25 Mcg = 1000 Iu)] 25 mcg PO TID lisinopriL [Zestril] 5 mg PO DAILY Esomeprazole Magnesium [NexIUM 24Hr] 20 mg PO DAILY Oxymetazoline 0.05% Nasl [place] [Afrin 0.05% Nasal [place]] 2 spr EA NOSTRIL BID PRN PRN Reason: Allergy Symptoms Discharge Medication List Albuterol Inhaler [Ventolin Hfa Inhaler] 2 puff INHALATION RT-Q6H PRN 11/27/19 [History] Fluticasone Nasal [place] [Flonase Nasal [place]] 1 spr EA NOSTRIL DAILY PRN 11/27/19 [History] Leflunomide [Arava] 20 mg PO Q48H 11/27/19 [History] Sertraline HCl [Zoloft] 100 mg PO DAILY 11/27/19 [History] Cholecalciferol [Vitamin D3 (25 Mcg = 1000 Iu)] 25 mcg PO TID 11/16/21 [History] Esomeprazole Magnesium [NexIUM 24Hr] 20 mg PO DAILY 11/16/21 [History] Pregabalin [Lyrica] 150 mg PO TID 11/16/21 [History] Oxymetazoline 0.05% Nasl [place] [Afrin 0.05% Nasal [place]] 2 spr EA NOSTRIL BID PRN 01/02/22 [History] lisinopriL [Zestril] 5 mg PO DAILY 01/02/22 [History] Aspirin 325 mg PO BID #60 tab 01/04/22 [Rx] Ondansetron Odt [Zofran Odt] 1 tab PO Q8HR PRN #10 tab 01/04/22 [Rx] Sennosides [Senokot] 2 tab PO DAILY PRN #60 tablet 01/04/22 [Rx] traMADol HCl [Ultram] 1 - 2 tab PO Q6H PRN #32 tab 01/04/22 [Rx] Follow up Appointment(s)/Referral(s): Wendy Dawson DO [Primary Care Provider] - 1-2 days Fred Oliveira DO [Doctor of Osteopathic Medicine] - 01/12/22 Activity/Diet/Wound Care/Special Instructions: Weightbearing as tolerated with walker. Leave wound vac in place for one week. Wound vac to be removed in the office. Please take aspirin 325mg twice daily for 30 days to prevent blood clots. Recommend use of compression stockings daily until follow up to help prevent swelling and blood clots. May remove at night before sleeping. Please follow-up with [facility] in 1 week and call with any questions or concerns, . Discharge Disposition: TRANSFER TO SNF/ECF
[2022-01-07] MEDS: PREGABALIN 75 MG CAP PO SCH (10:29)
[2022-01-07] MEDS: SERTRALINE 100 MG TAB PO SCH (10:29)
[2022-01-07] MEDS: PANTOPRAZOLE 40 MG TABLET PO SCH (10:29)
[2022-01-07] MEDS: CHOLECALCIFEROL 25 MCG (1000 IU) TABLET PO SCH (10:29)
[2022-01-07] MEDS: lisinopriL 5 MG TAB PO SCH (10:30)
[2022-01-07] MEDS: ASPIRIN 325 MG TAB PO SCH (10:30)
[2022-01-07] MEDS: DOXYCYCLINE 100 MG CAP PO SCH (11:07)
[2022-01-07 11:41] VITALS: BP 106/65; PULSE 78; RESP 18; TEMP 97.9
--- NOTE | 2022-01-07 13:40 | P.PN ---
Subjective Progress Note Date: 01/07/22 Patient had a fall last night. Previously event note for further detail. This morning patient is denying any acute complaints. She denies any fever or chills. She is had no more fevers in the past 24 hours. Her UA was negative. Chest x-ray also negative. Objective - Vital Signs Vital signs: Vital Signs Temp 97.9 F 01/07/22 11:08 Pulse 78 01/07/22 11:08 Resp 18 01/07/22 11:08 BP 106/65 01/07/22 11:08 Pulse Ox 93 L 01/07/22 11:08 FiO2 Intake & Output 01/06/22 01/07/22 01/07/22 18:59 06:59 18:59 Output Total 2 Balance -2 Output: Urine 1 Stool 1 Other: Voiding Method Indwelling Catheter Indwelling Catheter # Voids 3 - Exam General examination - Alert and Oriented 3 in NAD Heart - + S1S2 no murmurs Lungs - Clear to auscultation Abdomen soft NT ND +ve BS, obese Extremities - No edema, right hip wound VAC, in the left antecubital area there is a small abscess that is draining [employer] - Moving all 4 extremities spontaneously Psych - Calm and cooperative - Labs CBC & Chem 7: 01/07/22 05:13 01/02/22 12:20 Labs: Abnormal Lab Results - Last 24 Hours (Table) 01/07/22 Range/Units 05:13 RBC 3.78 L (4.10-5.20) X 10*6/uL Hgb 10.7 L (12.0-15.0) g/dL Hct 33.3 L (37.2-46.3) % Microbiology - Last 24 Hours (Table) 01/06/22 10:17 Blood Culture - Preliminary Blood No Growth after 24 hours Assessment and Plan Assessment: Right hip dislocation Status post right hip repair Fever likely due to atelectasis Patient does have a small skin abscess at the site of her IV line that has been removed however this is not severe enough to cause a Patient's chest x-ray negative for pneumonia UA is negative Follow up on blood cultures Patient does not meet sepsis criteria Small skin abscess at the site of the IV line IV line removal Complete a short course of antibiotics with doxycycline Hypertension Resume lisinopril Depression Resume sertraline Rheumatoid arthritis Hold Leflunomide similar patient can heal from her surgery Neuropathic pain lyrica GERD Resume Nexium Obstructive sleep apnea CPAP at bedtime DVT prophylaxis: Heparin Patient stable for discharge to care home facility for medical standpoint
== END 2022-01-07 12:50 | DRG 467 ==
LOC: EC 03:33 → 4SSUR 03:58 → 5NMEDONC 08:48
PROVIDERS: ADMIT Orthopaedic Surgery; ATTEND Orthopaedic Surgery
PROC: 0SR906Z Replacement of Right Hip Joint with Oxidized Zirconium on Polyethylene Synthetic Substitute, Open Approach (ICD-10-PCS; principal; 2022-01-04 15:30)
PROC: 0SP90JZ Removal of Synthetic Substitute from Right Hip Joint, Open Approach (ICD-10-PCS; principal; 2022-01-04 15:30)
PROC: 3E0U029 Introduction of Other Anti-infective into Joints, Open Approach (ICD-10-PCS; principal; 2022-01-04 15:30)
DX: T84.020A Dislocation of internal right hip prosthesis, initial encounter (principal); J98.11 Atelectasis; L02.414 Cutaneous abscess of left upper limb; Y79.2 Prosthetic and other implants, materials and accessory orthopedic devices associated with adverse incidents; Z91.81 History of falling; G47.33 Obstructive sleep apnea (adult) (pediatric); F32.A Depression, unspecified; I10 Essential (primary) hypertension; K21.9 Gastro-esophageal reflux disease without esophagitis; M06.9 Rheumatoid arthritis, unspecified; M24.452 Recurrent dislocation, left hip; M79.7 Fibromyalgia; Z79.82 Long term (current) use of aspirin; Z79.899 Other long term (current) drug therapy; J30.2 Other seasonal allergic rhinitis; Z20.822 Contact with and (suspected) exposure to COVID-19; Z82.49 Family history of ischemic heart disease and other diseases of the circulatory system; Z87.891 Personal history of nicotine dependence; Z96.653 Presence of artificial knee joint, bilateral; Z88.1 Allergy status to other antibiotic agents; Z88.0 Allergy status to penicillin; Z88.2 Allergy status to sulfonamides; Z88.8 Allergy status to other drugs, medicaments and biological substances
CPT/HCPCS: 70486; 71045; 72170; 73501; 80053; 81003; 83605; 85025; 85610; 86850; 86900; 86901; 87040; 87635; 96374; 99285